=== PATIENT | male | born 1960 | race Caucasian/White ===

== ENCOUNTER 2023-01-30 15:02 | Emergency (ER) | payer MEDICAID, SELFPAY ==
[2023-01-30 15:03] VITALS: BP 180/121; PULSE 85; RESP 18; TEMP 36.8; O2SAT 99; BMI 29.7
--- NOTE | 2023-01-30 15:07 | ED.RN ---
FRIEND THAT CAN BE CALLED FOR [facility] - [phone]
[2023-01-30 15:08] VITALS: O2SAT 100
--- NOTE | 2023-01-30 15:12 | EKG12_ITS ---
Test Reason : CP Blood Pressure : / mmHG Vent. Rate : 084 BPM Atrial Rate : 084 BPM P-R Int : 162 ms QRS Dur : 080 ms QT Int : 394 ms P-R-T Axes : 070 -25 059 degrees QTc Int : 465 ms Normal sinus rhythm Biatrial enlargement Abnormal ECG Confirmed by ANNMARIE WATERMAN, BRIAN ([id number]), advertising editor MAXIMINO PALENCIA ([id number]) on 02/01/2023 9:12:33 AM Referred By: Confirmed By:BRIAN ANGUIANO MD
[2023-01-30] MEDS: 0.9% Normal Saline 1,000 ML 15 ML IV (15:19)
[2023-01-30] MEDS: Aspirin 81 MG TAB.CHEW 324 MG PO (15:19)
--- NOTE | 2023-01-30 15:23 | ED.VIS.CHEST ---
HPI History of Present Illness Chief Complaint: Chest Pain Informant: patient Onset/Context/Timing Onset: Today Activity at onset: gradual Quality: Positive for Aching and - (Squeezing) Location: Left Parasternal Narrative Narrative: Patient presents secondary to chest pain. He reports having an aching sensation in his left chest over the past couple of hours. He states that he is from the [facility] but has been up here as his father recently . He admits that he was without his Paxil and his blood pressure medication for about 4 days but did get them refilled and has been back on the medication for the past 3 days. He is unsure if this is related to his symptoms today. He was not doing anything exertional when pain started. He states actually started shortly after he ate. He denies history of prior heart cath or stent. [facility] Medical History Alcohol abuse Anxiety Depression HTN (hypertension) Osteoarthritis Home Medications carvedilol 25 mg PO/SL BID 01/30/23 [History Last Taken Unknown] lisinopril 40 mg tablet 40 mg PO DAILY 01/30/23 [History Last Taken Unknown] paroxetine HCl 20 mg tablet 20 mg PO DAILY 01/30/23 [History Last Taken Unknown] Allergy/AdvReac Type Severity Reaction Status Date / Time No Known Allergies Allergy Verified 01/30/23 15:05 Social History Smoking Status: Current every day smoker tobacco type: cigarettes ROS ROS ED Constitutional Constitutional ED: Denies chills or fever(s) Eyes Eyes: Denies change in vision or discharge from eye(s) ENT ENT ED: Denies discharge from eye(s), rhinorrhea or sore throat Cardiovascular Cardiovascular: Reports chest pain; Denies palpitations Respiratory/Chest Respiratory/Chest: Reports dyspnea; Denies cough Gastrointestinal Gastrointestinal: Denies abdominal pain, diarrhea, nausea or vomiting Genitourinary Genitourinary ED: Denies dysuria Musculoskeletal Musculoskeletal: Denies back pain or extremity pain Integumentary Denies Abrasions or rash Neurologic Neurologic: Denies headache(s) or weakness Psychiatric Psychiatric: Denies anxiety or depression Allergic/Immunologic Allergic/Immunologic ED: Denies lip swelling or urticaria EXAM Physical Exam Const Vital Signs: 01/30/23 15:03 01/30/23 15:06 01/30/23 15:08 Temperature 98.2 F Temperature Source Temporal Pulse Rate 85 Respiratory Rate 18 Respiratory Effort Normal Non-Labored Blood Pressure 180/121 H Blood Pressure Mean 140 Pulse Ox 99 100 Oxygen Delivery Method Room Air Nasal Cannula Oxygen Flow Rate (L/min) 2 01/30/23 15:24 01/30/23 16:02 01/30/23 17:00 Temperature Temperature Source Pulse Rate 70 64 Respiratory Rate 19 H 16 Respiratory Effort Blood Pressure 150/102 H 140/84 H Blood Pressure Mean 118 102 Pulse Ox 99 95 Oxygen Delivery Method Nasal Cannula Nasal Cannula Room Air Oxygen Flow Rate (L/min) 3 3 01/30/23 18:00 Temperature Temperature Source Pulse Rate 63 Respiratory Rate 16 Respiratory Effort Blood Pressure 138/92 H Blood Pressure Mean 107 Pulse Ox 94 Oxygen Delivery Method Room Air Oxygen Flow Rate (L/min) Positive well nourished and well developed General Appearance ED: well developed HEENT Reports moist mucous membranes Eyes EOMs intact bilaterally Neck no lymphadenopathy Chest Wall inspection of chest normal and palpation of chest normal Resp normal respiratory effort and clear to auscultation bilaterally Cardio regular rate and regular rhythm GI normal to inspection, nondistended, normoactive bowel sounds and soft to palpation Extremity normal to inspection Neuro oriented x3, CN's II-XII intact bilaterally and no sensory deficits noted Motor Exam: strength 5/5 throughout Psych mental status grossly normal Skin no rashes or lesions noted Heart Score History: Moderately Suspicious ECG: Normal Age: >45 - <65 years Risk Factors: 1 or 2 Risk Factors Troponin: </= Normal Limit Score: 3 MDM MDM MDM Narrative Medical decision making narrative: Patient was given aspirin on arrival. He is placed on phototypesetting equipment monitor. EKG obtained to evaluate for cardiac arrhythmia/ischemia. Chest x-ray obtained to evaluate for acute lung pathology, cardiac size, or mediastinal abnormality. Labwork obtained to evaluate for leukocytosis, anemia, and electrolyte derangement. History & Record Review Discussion w/independent historian: Patient Additional record(s) reviewed:: Other Lab Data Attestation: I reviewed the patient's lab results. Labs: Laboratory Results - last 24 hr 01/30/23 01/30/23 01/30/23 15:05 15:05 17:56 WBC 9.9 RBC 5.29 Hgb 16.4 Hct 49.7 MCV 94.0 MCH 31.0 MCHC 33.0 RDW Std Deviation 44.3 H RDW Coeff of Ruth 12.8 Plt Count 230 MPV 9.0 Immature Gran % (Auto) 0.300 Neut % (Auto) 66.0 Lymph % (Auto) 21.8 [place] % (Auto) 10.1 H Eos % (Auto) 1.0 Baso % (Auto) 0.8 Absolute Neuts (auto) 6.5 Absolute Lymphs (auto) 2.15 Nucleated RBC % 0 Sodium 139 Potassium 3.9 Chloride 105 Carbon Dioxide 27.0 Anion Gap 7 BUN 23 H Creatinine 0.65 L Estim Creat Clear Calc 137.00 Est GFR (MDRD) Af Amer 161 Est GFR (MDRD) Non-Af 133 BUN/Creatinine Ratio 35.5 H Glucose 109 H Calcium 9.5 Troponin I High Sens 8 9 Radiography Chest X-Ray - ED: 1 View, Read by ED Physician, Chronic Changes and No Infiltrates Diagnostic Testing: Clinical Impression(s) from Imaging Studies Chest X-Ray 01/30/23 15:30 IMPRESSION: COPD. No acute disease. Electronically Signed: Rohith López MD at 16:54 EDT , EKG Initial EKG: Attestation: I personally reviewed and interpreted this EKG as follows: Interpretation: Sinus Rhythm (Sinus 84 with no acute ischemia.) Treatment and Re-Evaluation :: Patient is from the [facility] and I was able to review prior records and [facility]. In November he was seen at [facility] secondary to chest pain. He had a negative work-up including a delta troponin and was discharged. At that time there was concern that his chest pain was from alcohol withdrawal. He was admitted to the hospital there in October secondary to EtOH withdrawal. CBC is unremarkable with a normal white count and hemoglobin. Chemistry studies unremarkable with normal renal function. Glucose is 109. His initial troponin is 8 and delta troponin is 9. Portable chest x-ray per my interpretation was chronic changes with no acute focal infiltrate. Radiology interpretation is reviewed. EKG is sinus with no evidence of acute ischemia. After the initial blood work came back I went back to examine the patient. He states his pain is improved but not completely resolved. He does report increased anxiety and stress as his father recently . He feels that this is contributing to his chest pain. He was given a small dose of Ativan to help with his anxiety. He states his last alcoholic drink was approximately 12 hours ago. He does not feel as if he is in withdrawal at this time. With the second troponin returning normal I went back to reevaluate the patient. He is sleeping comfortably and easily awoken. He states he feels well at this time. He will be discharged to home and he will call for a ride. He states he plans to stay in this area for a while so I will refer him to a local PCP to establish care. Discharge Plan Triage Chief Complaint: Chest Pain ED Provider: Ange Haines Dx/Rx/DC Orders Clinical Impression: Chest pain Instructions: ED Chest Pain, Uncertain Cause Prescriptions: No Action paroxetine HCl 20 mg Tablet 20 mg PO DAILY lisinopril 40 mg Tablet 40 mg PO DAILY carvedilol 25 mg PO/SL BID Primary Care Provider: Care Physician,No Primary Referrals: Luana Escamilla MD [Med Staff - Recovery Engineer] - As Needed Care Physician,No Primary [Primary Care Provider] - Disposition Disposition: Home, Self Care
[2023-01-30 15:25] LABS: Absolute Lymphocyte Count 2.15 X10^3/uL (0.83-4.51); Absolute Neutrophil Count 6.5 X10^3/uL (2.0-7.7); Basophil# 0.08 X10^3/uL; Basophil% 0.8 % (0-1); Hematocrit 49.7 % (40-54); Hemoglobin 16.4 g/dL (13.0-16.5); Lymphocyte # 2.15 X10^3/ul (0.83-4.51); Lymphocyte % 21.8 % (19-41); Monocyte% 10.1 % (0-10); NRBC Flagged by Analyzer 0 % (0-5); Platelet Count 230 K/mm3 (150-450); RBC Distribution Width CV 12.8 % (11.6-14.6); RBC Distribution Width SD 44.3 fl (35.1-43.9); Red Blood Count 5.29 M/mm3 (4.6-6.2); White Blood Count 9.9 K/mm3 (4.4-11.0)
--- NOTE | 2023-01-30 15:30 | RAD_ITS ---
STUDY: X-RAY CHEST REASON FOR EXAM: Male, 62 years old. chest pain TECHNIQUE: Single frontal view of the chest. COMPARISON: None. FINDINGS: Lungs are hyperaerated. The lungs are clear and expanded. There is no demonstrated pleural abnormality. Normal size heart. Normal mediastinum and marjan. Normal visualized pulmonary arteries. Normal visualized aortic arch and descending thoracic aorta. Normal visualized thoracic spine. Normal visualized ribs, clavicles, and shoulders. There is no demonstrated abnormality of the visualized soft tissue structures of the upper abdomen. RAD/Chest 1 View (Portable) IMPRESSION: COPD. No acute disease. Electronically Signed: Rohith López MD at 16:54 EDT ,
[2023-01-30 15:40] LABS: Anion Gap 7 (5-15); BUN 23 mg/dL (7-18); BUN/Creat Ratio 35.5 RATIO (10-20); Calcium,Total 9.5 mg/dL (8.5-10.1); Chloride 105 mmol/L (98-107); Creatinine, Serum 0.65 mg/dL (0.70-1.30); EST Glomerular Filtration Rate 133 mL/min (>60); Est Glom Filt Rate - Afr Amer 161 mL/min (>60); Glucose 109 mg/dL (74-106); Potassium 3.9 mmol/L (3.5-5.1); Sodium Level 139 mmol/L (136-145); Troponin-I HS (w/2H Reflex) 8 pg/mL (3.0-78.0)
[2023-01-30 16:02] VITALS: BP 150/102; PULSE 70; RESP 19; O2SAT 99
[2023-01-30] MEDS: LORazepam 2 MG/ML Syringe 0.5 MG IV (16:32)
--- NOTE | 2023-01-30 16:53 | ED.RN ---
PATIENTS SISTER CALLING FOR INFORMATION REGARDING HER BROTHER. RN ASKED PATIENT IF HE WOULD LIKE TO TALK TO HIS SISTER. PATIENT STATES NO THANK YOU. RN ASKED ONCE AGAIN. PATIENT SAID NO, I DON'T WANT TO TALK TO HER. PATIENTS SISTER NOTIFIED.
[2023-01-30 17:00] VITALS: BP 140/84; PULSE 64; RESP 16; O2SAT 95
[2023-01-30 17:19] LABS: Reflex Troponin-HS? (from REC) Y
[2023-01-30 18:00] VITALS: BP 138/92; PULSE 63; RESP 16; O2SAT 94
[2023-01-30 18:23] LABS: Troponin-I HS 9 pg/mL (3.0-78.0)
[2023-01-30 19:13] VITALS: PULSE 67; RESP 18; O2SAT 95
== END 2023-01-30 19:14 | disposition home or self-care (01) ==
PROVIDERS: Emergency Provider Emergency Medicine; Visit Provider Emergency Medicine
DX: R07.9 Chest pain, unspecified (principal); I10 Essential (primary) hypertension; F17.210 Nicotine dependence, cigarettes, uncomplicated; Z79.899 Other long term (current) drug therapy; F41.9 Anxiety disorder, unspecified; F32.A Depression, unspecified
CPT/HCPCS: 71045; 80048; 84484; 85025; 93005; 96374; 99285; J7030; A4216

== ENCOUNTER 2023-03-13 16:44 | Emergency (ER) | payer MEDICAID, SELFPAY ==
[2023-03-13 16:45] VITALS: BP 132/94; PULSE 112; RESP 22; TEMP 37.4; O2SAT 95
--- NOTE | 2023-03-13 16:48 | EDS_ITS ---
HPI History of Present Illness Chief Complaint: Chest Pain [facility] Medical History Alcohol abuse Anxiety Depression HTN (hypertension) Osteoarthritis Home Medications carvedilol 25 mg PO/SL BID 01/30/23 [History Last Taken Unknown] lisinopril 40 mg tablet 40 mg PO DAILY 01/30/23 [History Last Taken Unknown] paroxetine HCl 20 mg tablet 20 mg PO DAILY 01/30/23 [History Last Taken Unknown] amlodipine 10 mg tablet 10 mg PO DAILY 03/13/23 [History Last Taken Unknown] thiamine HCl (vitamin B1) 100 mg tablet (Vitamin B-1) 100 mg PO DAILY 03/13/23 [History Last Taken Unknown] Allergy/AdvReac Type Severity Reaction Status Date / Time No Known Allergies Allergy Verified 03/13/23 16:49 Social History Smoking Status: Former smoker EXAM Physical Exam Const Vital Signs: 03/13/23 16:45 03/13/23 16:51 03/13/23 16:52 Temperature 99.3 F H Temperature Source Oral Pulse Rate 112 H Respiratory Rate 22 H Respiratory Effort Normal Non-Labored Blood Pressure 132/94 H Blood Pressure Mean 106 Pulse Ox 95 Oxygen Delivery Method Room Air Room Air 03/13/23 18:44 03/13/23 20:00 Temperature Temperature Source Pulse Rate 108 H 107 H Respiratory Rate 24 H 22 H Respiratory Effort Blood Pressure 179/138 H 148/53 H Blood Pressure Mean 151 84 Pulse Ox 96 96 Oxygen Delivery Method Room Air Room Air Heart Score History: Slightly/Non-Suspicious ECG: Normal Age: >45 - <65 years Risk Factors: 1 or 2 Risk Factors Troponin: </= Normal Limit Score: 2 MDM MDM MDM Narrative Medical decision making narrative: HISTORY OF PRESENT ILLNESS: 62-year-old male here with sudden chest tightness and diaphoresis. States this began Approximately 4 hours prior to arrival. Notes midsternal chest tightness. Pain is not exertional. Is not pleuritic. Patient denies any cough, fever. Denies associated shortness of breath. Denies any focal numbness or weakness. The patient denies recent surgery in the last 4 weeks or immobilization in the last 3 days, denies previous diagnosis of DVT or PE, hemoptysis, unilateral leg swelling or malignancy with treatment the last 6 months. No estrogen use noted. Patient denies sudden onset of pain, no tearing sensation, no migratory symptoms, no new numbness, weakness or loss of sensation. Patient denies family history or personal history of Marfan syndrome or Clare-Danlos. Denies any cocaine or methamphetamine abuse REVIEW OF SYSTEMS: Pertinent positives: Chest tightness, diaphoresis Pertinent negatives: Syncope, focal weakness, leg swelling, unilateral leg swelling, hemoptysis PHYSICAL EXAM: Nursing triage notes reviewed, Vital signs reviewed Constitutional: please see mdm HENT: MMM Eyes: Pupils equal round and reactive to light, Extraocular muscles intact Neck: No stridor, no JVD, full neck ROM Lungs: Clear to auscultation, No wheezing or rales. No increased work of breathing, no conversational dyspnea, no accessory muscle use, no nasal flaring. No respiratory distress noted Heart: Regular rate and rhythm, No murmurs, No rubs and No gallops, 2+ distal pulses (radial, femoral, posterior tibial) in all extremities Abdomen: Soft, there is no tenderness, rigidity, rebound or guarding, no obvious peritoneal signs, no palpable pulsatile abdominal masses, no auscultated abdominal bruit : No CVAT Extremities: No edema Neuro: No focal neurological deficits, cranial nerves II through XII intact, 5/5 strength in all extremities. Intact sensation to light touch in all extremities, 2+ reflexes bilateral patella tendons. Normal gait. No ataxia. Skin: No rash or lesions noted MEDICAL DECISION MAKING: Chief Complaint: Chest tightness External records reviewed: Outpatient note reviewed: Seen last month for chest pain Prior imaging reviewed: Chest x-ray reviewed from 01/30/2023 showed COPD. No acute disease Factors affecting care: Hypertension, anxiety, alcohol abuse, depression Social determinants of health: History of alcoholism History obtained from others: EMS Consults: none ALL IMAGES (IF OBTAINED) HAVE BEEN PERSONALLY REVIEWED AND INTERPRETED BY MYSELF. EKG with sinus tachycardia, left axis deviation, normal intervals, no STEMI, no ischemic changes, no WPW, ARVD or evidence of Brugada syndrome MDM Narrative: Patient was initially tachycardic tachypneic afebrile nontoxic very diaphoretic. I considered the following differential diagnosis: ACS, arrhythmia, anemia, electrode abnormality, alcohol withdrawal, drug ingestion, thyroid dysfunction I obtained a broad lab and imaging work-up to further elucidate the etiology the patient's complaint. Labs not significant anemia, electrolyte abnormalities, initial troponin negative Patient's EKG, troponin were negative x2. Labs are unremarkable as well. No clear x-rays for symptoms. I suspect the patient has a component of alcohol withdrawal however he denies using alcohol vehemently. He was given Ativan for prophylactic effect. He was given a 500 cc bolus. TSH, free T3 and T4 for added as well to work-up with the patient any thyroid disease. Thyroid function studies are negative. On reassessment. I did again talk to the patient about my suspicion that he is going through alcohol withdrawal given hypertension, tachycardia, anxiety and diaphoresis. He again denies using alcohol but does state there may have been alcohol and a drink that he drank proximally 3 days ago. He says he may have done 2 shots. I offer the patient admission for alcohol withdrawal or alcohol detoxification. He refused he stated he has been in [place] and alcohol withdrawal treatment 3 other times to keep given her medicines that make him high and he never gets better. He does not want to stay in the hospital at this time. He is alert and orient x3. He had capacity to make his own medical decisions and chose to be discharged with close PCP follow-up and strict return precautions. PE less likely given low risk Wells score. Aortic dissection is thought to be less likely given no sudden ripping or tearing pain, migratory pain, palpable pulse inequalities, no focal neurologic deficits concurrent with chest pain. Chance of dissection less than 08/1999. Pericarditis less likely given no pathognomonic EKG changes (no diffuse ST elevations, NM depressions). GI etiology (i.e. Boerhaave syndrome) less likely given no chest or neck crepitus, no vomiting or forced retching. The patient and/or family, caregivers express understanding. The patient and/or family, caregivers agrees with the plan. Shared decision making: I will have a discussion with the patient and or visitors regarding risk/benefits of further testing or admission. They will be made aware of of the risk/benefits inherent in this decision they will be given the opportunity to voice understanding. Total critical care time today provided was at least 0 minutes. This excludes separately billable procedures. Critical care time (if documented) is secondary to the patient having high probability of clinically significant/life threatening deterioration in the patient's condition which required my urgent intervention. Lab Data Attestation: I reviewed the patient's lab results. Lab results narrative: CBC with leukocytosis suggestive of systemic inflammation, no significant anemia, no thrombocytopenia. BMP without evidence of significant electrolyte abnormalities, no anion gap, no acute kidney injury. Troponin is negative, no evidence of myocardial ischemia Labs: Laboratory Results - last 24 hr 03/13/23 03/13/23 17:21 19:10 WBC 12.6 H RBC 5.30 Hgb 16.1 Hct 49.9 MCV 94.2 H MCH 30.4 MCHC 32.3 RDW Std Deviation 44.0 H RDW Coeff of Ruth 12.8 Plt Count 188 MPV 9.7 Immature Gran % (Auto) 0.300 Neut % (Auto) 76.2 H Lymph % (Auto) 15.1 L [place] % (Auto) 7.2 Eos % (Auto) 0.7 Baso % (Auto) 0.5 Absolute Neuts (auto) 9.6 H Absolute Lymphs (auto) 1.90 Nucleated RBC % 0 Sodium 141 Potassium 4.2 Chloride 106 Carbon Dioxide 28.0 Anion Gap 7 BUN 39 H Creatinine 1.36 H Est GFR (MDRD) Af Amer 68 Est GFR (MDRD) Non-Af 56 L BUN/Creatinine Ratio 28.7 H Glucose 118 H Calcium 9.9 Troponin I High Sens 8 7 TSH 1.61 Free T4 1.10 Free T3 pg/dL 4.3 H Radiography Chest X-Ray - ED: Read by ED Physician Diagnostic Testing: Clinical Impression(s) from Imaging Studies Chest X-Ray 03/13/23 17:30 IMPRESSION: No change from 01/30/2023. Electronically Signed: Jason Plascencia MD at 17:45 EDT , I have personally reviewed the patient's chest x-ray. Chest x-ray is unremarkable for pulmonary edema, pneumothorax, pneumonia or focal cardiopulmonary abnormality. Discharge Plan Triage Chief Complaint: Chest Pain ED Provider: Josue Mcginnis Dx/Rx/DC Orders Clinical Impression: Alcohol withdrawal, Tachycardia, Hypertension, Chest pain Instructions: Alcohol Withdrawal: What to Expect Prescriptions: No Action paroxetine HCl 20 mg Tablet 20 mg PO DAILY lisinopril 40 mg Tablet 40 mg PO DAILY carvedilol 25 mg PO/SL BID amlodipine 10 mg tablet 10 mg PO DAILY thiamine HCl (vitamin B1) [Vitamin B-1] 100 mg tablet 100 mg PO DAILY Primary Care Provider: Care Physician,No Primary Referrals: Care Physician,No Primary [Primary Care Provider] - Activity Restrictions/Additional Instructions: Thank you for trusting us with your care today! Please return to the emergency department if your symptoms change or worsen. Please follow with your primary care physician for further outpatient evaluation and management. I recommend you drink alcohol to prevent you from going into florid alcohol withdrawal which can be deadly. Disposition Disposition: Home, Self Care
--- NOTE | 2023-03-13 16:50 | EKG12_ITS ---
Test Reason : CP Blood Pressure : / mmHG Vent. Rate : 112 BPM Atrial Rate : 112 BPM P-R Int : 150 ms QRS Dur : 080 ms QT Int : 332 ms P-R-T Axes : 068 -17 048 degrees QTc Int : 453 ms Sinus tachycardia Possible Left atrial enlargement Borderline ECG Confirmed by ANNMARIE WATERMAN, BRIAN ([id number]), medical editor MAXIMINO PALENCIA ([id number]) on 03/14/2023 1:31:08 PM Referred By: CHANTELLE Confirmed By:BRIAN ANGUIANO MD
--- NOTE | 2023-03-13 17:30 | RAD_ITS ---
STUDY: X-RAY CHEST REASON FOR EXAM: Male, 62 years old. chest pain TECHNIQUE: Single AP portable view of the chest. COMPARISON: 01/30/2023 FINDINGS: The lungs are clear and expanded. There is no demonstrated pleural abnormality. There is moderate cardiac enlargement. Normal mediastinum and marjan. Normal visualized pulmonary arteries. Normal visualized aortic arch and descending thoracic aorta. Normal visualized thoracic spine. Normal visualized ribs, clavicles, and shoulders. There is no demonstrated abnormality of the visualized soft tissue structures of the upper abdomen. RAD/Chest 1 View (Portable) IMPRESSION: No change from 01/30/2023. Electronically Signed: Jason Plascencia MD at 17:45 EDT ,
[2023-03-13 17:31] LABS: Absolute Neutrophil Count 9.6 X10^3/uL (2.0-7.7); Basophil# 0.06 X10^3/uL; Basophil% 0.5 % (0-1); Eosinophil# 0.09 X10^3/uL; Eosinophils% 0.7 % (0-5); Hematocrit 49.9 % (40-54); Hemoglobin 16.1 g/dL (13.0-16.5); Lymphocyte % 15.1 % (19-41); Mean Corp Hgb Conc 32.3 g/dL (32-36); Mean Corpuscular Hgb 30.4 pg (27.0-32.0); Mean Corpuscular Volume 94.2 fL (80-94); Mean Platelet Vol. 9.7 fl (6.2-12.0); Monocyte% 7.2 % (0-10); NRBC Flagged by Analyzer 0 % (0-5); Neutrophil # 9.56 X10^3/uL (2.7-7.7); Neutrophil % 76.2 % (47-70); Platelet Count 188 K/mm3 (150-450); RBC Distribution Width CV 12.8 % (11.6-14.6); White Blood Count 12.6 K/mm3 (4.4-11.0)
[2023-03-13 17:49] LABS: Anion Gap 7 (5-15); BUN 39 mg/dL (7-18); BUN/Creat Ratio 28.7 RATIO (10-20); Calcium,Total 9.9 mg/dL (8.5-10.1); Chloride 106 mmol/L (98-107); Creatinine, Serum 1.36 mg/dL (0.70-1.30); EST Glomerular Filtration Rate 56 mL/min (>60); Est Glom Filt Rate - Afr Amer 68 mL/min (>60); Glucose 118 mg/dL (74-106); Potassium 4.2 mmol/L (3.5-5.1); Sodium Level 141 mmol/L (136-145); Troponin-I HS (w/2H Reflex) 8 pg/mL (3.0-78.0)
[2023-03-13] MEDS: LORazepam 2 MG/ML Syringe 1 MG IV (17:50)
[2023-03-13 18:44] VITALS: BP 179/138; PULSE 108; RESP 24; O2SAT 96
[2023-03-13 19:25] LABS: Reflex Troponin-HS? (from REC) Y
[2023-03-13 19:44] LABS: Troponin-I HS 7 pg/mL (3.0-78.0)
[2023-03-13 20:00] VITALS: BP 148/53; PULSE 107; RESP 22; O2SAT 96
[2023-03-13 20:35] LABS: Free T3 4.3 pg/mL (2.18-3.98); Thyroid Stim Hormone (TSH) 1.61 uIU/mL (0.358-3.74)
== END 2023-03-13 21:35 | disposition home or self-care (01) ==
PROVIDERS: Emergency Provider Emergency Medicine; Visit Provider Emergency Medicine
DX: F10.239 Alcohol dependence with withdrawal, unspecified (principal); J44.9 Chronic obstructive pulmonary disease, unspecified; I10 Essential (primary) hypertension; Z79.899 Other long term (current) drug therapy; Z87.891 Personal history of nicotine dependence
CPT/HCPCS: 71045; 80048; 84439; 84443; 84481; 84484; 85025; 93005; 96374; 99285; A4216; J7030

== ENCOUNTER 2023-03-14 02:09 | Emergency (ER) | payer MEDICAID, SELFPAY ==
[2023-03-14 02:11] VITALS: BP 108/88; PULSE 113; RESP 18; TEMP 36.8; O2SAT 90; BMI 26.6
[2023-03-14 02:15] VITALS: BP 104/80; PULSE 113; RESP 18; TEMP 36.8; O2SAT 90
--- NOTE | 2023-03-14 02:29 | EKG12_ITS ---
Test Reason : ANXIETY Blood Pressure : / mmHG Vent. Rate : 110 BPM Atrial Rate : 110 BPM P-R Int : 150 ms QRS Dur : 080 ms QT Int : 330 ms P-R-T Axes : 063 -12 052 degrees QTc Int : 446 ms Sinus tachycardia Possible Left atrial enlargement Borderline ECG Confirmed by ANNMARIE WATERMAN, BRIAN ([id number]), legal editor MAXIMINO PALENCIA ([id number]) on 03/14/2023 1:34:31 PM Referred By: HEAVEN Confirmed By:BRIAN ANGUIANO MD
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
[2023-03-14 04:01] LABS: Troponin-I HS 10 pg/mL (3.0-78.0)
[2023-03-14 04:02] LABS: Alcohol, Blood (Medical)-Serum < 3.0 mg/dL
--- NOTE | 2023-03-14 04:37 | CT_ITS ---
EXAM: CT ABDOMEN AND PELVIS WITHOUT INTRAVENOUS CONTRAST CLINICAL INDICATION: Abdominal pain, history of alcohol abuse, hypertension. Patient unable to hold still. TECHNIQUE: Helically acquired images were obtained of the abdomen and pelvis without intravenous contrast. This CT exam was performed using one or more of the following dose reduction techniques: automated exposure control, adjustment of the mA and/or kV according to patient size, and/or use of iterative reconstruction technique. CONTRAST: 100 cc of Isovue-370 IV. RADIATION DOSE: CTDIvol = 13.28 mGy, DLP = 1097.95 mGy-cm COMPARISON: No relevant prior studies available. FINDINGS: LOWER THORAX: Unremarkable. Lung bases are clear. No cardiomegaly. No significant pericardial effusion. ABDOMEN: LIVER: Unremarkable. Homogeneous. GALLBLADDER AND BILE DUCTS: Unremarkable. No calcified gallstones. No gallbladder distention or wall edema. No intra- or extrahepatic biliary ductal dilation. PANCREAS: Unremarkable. No focal cystic mass. SPLEEN: Unremarkable. Normal size without focal cystic or solid mass. ADRENALS: Unremarkable. No nodules. KIDNEYS AND URETERS: Tiny nonobstructing calculi left kidney. Normal renal size and position. STOMACH AND BOWEL: Mild increased fluid throughout the small bowel may be due to gastroenteritis. No stomach or bowel distention. PELVIS: APPENDIX: Normal appendix. BLADDER: Unremarkable. REPRODUCTIVE: Unremarkable as visualized. No mass. ABDOMEN and PELVIS: INTRAPERITONEAL SPACE: Unremarkable. No ascites or other fluid collection. No free air. BONES/JOINTS: Unremarkable. No suspicious lytic or blastic abnormality. SOFT TISSUES: Unremarkable. No discrete abdominal or pelvic wall hernia. VASCULATURE: Unremarkable. Abdominal aorta is non-dilated. LYMPH NODES: Unremarkable. No enlarged lymph nodes. CT/Abdomen/Pelvis without Cont IMPRESSION: 1. Mild increased fluid throughout the small bowel may be due to gastroenteritis. No obstruction. 2. Tiny nonobstructing calculi left kidney. Electronically Signed: Gustavo Jones MD at 6:04 EDT ,
[2023-03-14] MEDS: Ondansetron 4 MG/2 ML Vial IV (05:18)
[2023-03-14 05:51] LABS: Lipase 38 U/L (13-75)
[2023-03-14 06:24] VITALS: BP 115/68; PULSE 86; RESP 16; O2SAT 92
== END 2023-03-14 06:43 | disposition home or self-care (01) ==
PROVIDERS: Emergency Provider Emergency Medicine; Visit Provider Emergency Medicine
DX: F41.0 Panic disorder [episodic paroxysmal anxiety] (principal); K52.9 Noninfective gastroenteritis and colitis, unspecified; I10 Essential (primary) hypertension; Z87.891 Personal history of nicotine dependence; Z79.899 Other long term (current) drug therapy
CPT/HCPCS: 74176; 80320; 83690; 84484; 93005; A4216; J2405; 82077

== ENCOUNTER 2023-03-14 20:38 | Inpatient (IN) | payer MEDICAID, SELFPAY ==
[2023-03-14 20:40] VITALS: BP 109/65; PULSE 109; RESP 18; TEMP 36.6; O2SAT 98; BMI 29.7
[2023-03-14 20:49] VITALS: PULSE 98
--- NOTE | 2023-03-14 20:50 | EKG12_ITS ---
Test Reason : [facility] Blood Pressure : / mmHG Vent. Rate : 133 BPM Atrial Rate : 133 BPM P-R Int : 156 ms QRS Dur : 084 ms QT Int : 292 ms P-R-T Axes : 038 -26 059 degrees QTc Int : 434 ms Sinus tachycardia Otherwise normal ECG Confirmed by ANNMARIE WATERMAN, BRIAN ([id number]), newspaper editor MAXIMINO PALENCIA ([id number]) on 03/15/2023 9:42:38 AM Referred By: BB Confirmed By:BRIAN ANGUIANO MD
--- NOTE | 2023-03-14 20:50 | CT_ITS ---
STUDY: CT BRAIN WITHOUT CONTRAST REASON FOR EXAM: Male, 62 years old. Change in Mental Status, patient unable to hold still. RADIATION DOSAGE (If Supplied By Facility): CTDIvol = ( 44.99 ) mGy, DLP = ( 880.47 ) mGycm TECHNIQUE: Transaxial CT imaging of the brain was performed without administration of intravenous contrast material. Individualized dose optimization techniques were used for this CT. COMPARISON: No relevant priors. FINDINGS: Normal soft tissue structures. Normal calvarium. Normal size ventricles and extra-axial spaces for the patient''s age. Normal white matter tracts of the cerebral hemispheres. Normal basal ganglia and thalami. Normal brainstem. Normal cerebellum. There is no intracranial hemorrhage. There are no findings of an acute ischemic infarction. Normal visualized paranasal sinuses. CT/Brain/Head without Contrast IMPRESSION: Normal unenhanced CT scan of the brain. Electronically Signed: Letitia Doyle MD at 22:50 EDT Reading Location ID and State: [id number] / Tel , Service support ,
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
[2023-03-14 21:39] VITALS: RESP 18
[2023-03-14 21:54] LABS: Absolute Lymphocyte Count 1.29 X10^3/uL (0.83-4.51); Absolute Neutrophil Count 11.9 X10^3/uL (2.0-7.7); Basophil# 0.04 X10^3/uL; Basophil% 0.3 % (0-1); Eosinophil# 0.02 X10^3/uL; Eosinophils% 0.1 % (0-5); Hemoglobin 14.4 g/dL (13.0-16.5); Lymphocyte # 1.29 X10^3/ul (0.83-4.51); Lymphocyte % 9.3 % (19-41); Mean Corp Hgb Conc 33.5 g/dL (32-36); Mean Corpuscular Hgb 30.6 pg (27.0-32.0); Mean Corpuscular Volume 91.3 fL (80-94); Mean Platelet Vol. 9.7 fl (6.2-12.0); Monocyte# 0.59 X10^3/uL; Monocyte% 4.3 % (0-10); NRBC Flagged by Analyzer 0 % (0-5); Neutrophil # 11.86 X10^3/uL (2.7-7.7); Neutrophil % 85.6 % (47-70); Platelet Count 176 K/mm3 (150-450); RBC Distribution Width CV 13.1 % (11.6-14.6); RBC Distribution Width SD 43.2 fl (35.1-43.9); Red Blood Count 4.71 M/mm3 (4.6-6.2); White Blood Count 13.9 K/mm3 (4.4-11.0)
[2023-03-14 22:01] LABS: Mucous, Urine 0 SEEN /hpf (<or=2+); Red Blood Cells-Urine 0 SEEN /hpf (0-5); Squamous Epithelial Cells - UA 0 SEEN /hpf (0-5)
[2023-03-14 22:04] LABS: Color, Urine Yellow (Yellow); Glucose, Dipstick Normal (Normal); Ketone-Dipstick Negative (Negative); Leukocyte Esterase-Dipstick 25 /ul (Negative); Nitrite-Dipstick Negative (Negative); Occult Blood-Urine 10 /ul (Negative); Protein-Dipstick 30 mg/dl (Negative); Urine Clarity Clear (Clear); Urine Urobilinogen 1 mg/dl (Normal)
[2023-03-14 22:07] LABS: Alcohol, Blood (Medical)-Serum < 3.0 mg/dL
[2023-03-14 22:11] LABS: Bacteria RARE /hpf (None Seen); Calcium Oxalate Crystals Ur 1+ /hpf (<or=2+); Hyaline Cast 0-5 SEEN /lpf (0-5); Urine Bilirubin Dipstick 3 mg/dL (Negative); White Blood Cells 0-5 SEEN /hpf (0-5)
[2023-03-14 22:12] LABS: Amphetamine Urine VISTA POSITIVE (<1000 ng/mL); Barbiturate Urine VISTA NEGATIVE (< 200 ng/mL); Benzodiazepine Urine VISTA NEGATIVE (< 200 ng/mL); Cocaine Urine VISTA NEGATIVE (< 300 ng/mL); Ecstacy Urine VISTA POSITIVE (< 500 ng/mL); Methadone Urine VISTA NEGATIVE (< 300 ng/mL); PCP Urine VISTA NEGATIVE (< 25 ng/mL); THC Urine VISTA NEGATIVE (< 50 ng/mL); Vista UDS pH Range 5
--- NOTE | 2023-03-14 22:20 | RAD_ITS ---
INDICATION: chest pain EXAMINATION/TECHNIQUE: X-RAY - XR Chest 2 Views COMPARISON: 03/13/2023. FINDINGS: LINES/DEVICES: None. LUNGS: No consolidation, edema or effusion. No pneumothorax. MEDIASTINUM AND CARDIOVASCULAR STRUCTURES: Cardiac silhouette not enlarged. Central airways and mediastinal contour are unremarkable. BONES AND SOFT TISSUES: Degenerative changes of the right shoulder. RAD/Chest PA and Lateral IMPRESSION: No radiographic evidence of acute cardiopulmonary disease. Electronically Signed: Letitia Doyle MD at 23:11 EDT Reading Location ID and State: [id number] / Tel , Service support ,
--- NOTE | 2023-03-14 22:22 | CM.ED ---
Social Work SW provided hand off to [facility]. Clinicals to be faxed to Crisis faxage once patient is medically cleared. Plan: [facility] to evaluate MAURISIO Brock
[2023-03-14 22:39] VITALS: RESP 18
[2023-03-14 23:00] VITALS: RESP 16
[2023-03-14 23:13] LABS: ALB/GLOB Ratio 1.2 RATIO (0.9-2.4); AST(SGOT) 30 U/L (15-37); Alanine Aminotransfer ALT/SGPT 21 U/L (16-61); Albumin, Serum 4.1 g/dL (3.2-5.0); Alkaline Phosphatase 77 U/L (45-117); Anion Gap 13 (5-15); BUN 71 mg/dL (7-18); Calcium,Total 9.2 mg/dL (8.5-10.1); Chloride 104 mmol/L (98-107); Creatinine, Serum 2.96 mg/dL (0.70-1.30); EST Glomerular Filtration Rate 23 mL/min (>60); Est Glom Filt Rate - Afr Amer 28 mL/min (>60); Estimated Creatinine Clearance 26.72 ml/min; Globulin 3.3 g/dL (2.2-4.2); Glucose 90 mg/dL (74-106); Potassium 4.4 mmol/L (3.5-5.1); Protein, Total 7.4 g/dL (6.4-8.2); Sodium Level 139 mmol/L (136-145); Thyroid Stim Hormone (TSH) 1.01 uIU/mL (0.358-3.74); Troponin-I HS 12 pg/mL (3.0-78.0)
[2023-03-14 23:39] VITALS: BP 112/82; PULSE 84; RESP 18; TEMP 35.7; O2SAT 98
--- NOTE | 2023-03-14 23:39 | PCM.HP.STD ---
HPI - General General Date of Admission: 03/14/23 Date of Service: 03/14/23 Chief Complaint: Agitation, psychosis. HPI Narrative The patient is a 62 y/o M w/ PMHx: Anxiety and Depression/Bipolar disorder/Unclear if any component schizophrenia, Former tobacco use, HTN, EtOH abuse, recent 03/13/2023 ED evaluation with myriad of complaints including chest discomfort with troponin x 2 negative and EKG was sinus tachycardia with no acute evidence of ischemia with evidence of alcohol withdrawal however patient denied alcohol use at that time with Ativan administration as well as 500 cc IV fluid bolus offered alcohol withdrawal treatment admission at that time however he declined and of note has been in [place] at other facilities for alcohol withdrawal treatment returning 03/14/2023 early a.m. with concern for panic attack reportedly being approached at his hotel room with significant anxiety following prompting to call 911 at that time with palpitations and nausea and possible emesis in the heat of the moment but improved following ED evaluation with discharge to now represents to the [facility] ED on 03/14/23 in the evening brought in by a pink slip reportedly standing out in the rain all day approaching the police at [facility] telling them that someone was trying to kill him and chasing him with extreme paranoia prompting police to bring him in for evaluation. He reported in the ED that he has not partaken EtOH for several weeks of note. Workup in the ED included T97.9, heart rate initially 109 with most recent repeat 98, BP 109/65, respiratory rate 18, 98% on room air, CBC with WBC 13.9, hemoglobin 14.4, platelet 176 with left shift, CMP with BUN/creatinine 71/2.96 otherwise not marked appearing, ammonia 19, troponin 12, TSH 1.01, urinalysis with specific gravity elevated 1.020, negative nitrite, leukocyte Estrace 25 with no urine bacteria, UDS with positive amphetamine and MDMA, ethyl alcohol less than 3, CT the brain with no acute intracranial findings, chest x-ray with no acute cardiopulmonary finding, repeat EKG with sinus tachycardia with no acute evidence of ischemia. [facility] Medical History (Updated 03/14/23 @ 23:[address] Jess Patel MD) Alcohol abuse Anxiety and depression Former tobacco use HTN (hypertension) Osteoarthritis Panic attack Home Medications carvedilol 25 mg PO/SL BID 01/30/23 [History Last Taken Unknown] lisinopril 40 mg tablet 40 mg PO DAILY 01/30/23 [History Last Taken Unknown] paroxetine HCl 20 mg tablet 20 mg PO DAILY 01/30/23 [History Last Taken Unknown] thiamine HCl (vitamin B1) 100 mg tablet (Vitamin B-1) 100 mg PO DAILY 03/13/23 [History Last Taken Unknown] ondansetron 4 mg disintegrating tablet 4 mg PO Q8H PRN PRN Nausea #10 tabs 03/14/23 [Rx Last Taken Unknown] Allergy/AdvReac Type Severity Reaction Status Date / Time No Known Allergies Allergy Verified 03/14/23 20:39 Family History (Updated 03/15/23 @ 00:[address] Jess Patel MD) Mother Anxiety and depression Father Lung disease Surgical History (Updated 03/15/23 @ 00:[address] Jess Patel MD) History of thoracic surgery History of tonsillectomy and adenoidectomy History of total right knee replacement Social History (Updated 03/15/23 @ 00:[address] Jess Patel MD) household members: other details: Homeless. Smoking Status: Former smoker how long ago did patient quit smoking: Quit x 5 weeks. alcohol intake: current alcohol intake frequency: 3 or more drinks per day details: Reports currently sober but poor historian. substance use type: amphetamines and other details: UDS w/ amphetamines/MDMA. ROS ROS Narrative Admission Review of Systems: CONSTITUTIONAL: No weight loss, fever, chills, + weakness or fatigue. HEENT: Eyes: No visual loss, blurred vision, double vision or yellow sclerae. Ears, Nose, Throat: No hearing loss, sneezing, congestion, runny nose or sore throat. SKIN: No rash or itching, lesions, wounds. CARDIOVASCULAR: + chest pain, palpitations. No edema, orthopnea, syncopal events. RESPIRATORY: No shortness of breath, cough or sputum, wheezing, hemoptysis. GASTROINTESTINAL: + anorexia, nausea, vomiting, No diarrhea, abdominal pain, melena, BRBPR. GENITOURINARY: No dysuria, frequency, urgency or retention. NEUROLOGICAL: No headache, dizziness, syncope, paralysis, ataxia, numbness or tingling in the extremities, focal weakness, change in bowel or bladder control, seizure. MUSCULOSKELETAL: + muscle, back pain, joint pain or stiffness. HEMATOLOGIC: No anemia, bleeding or bruising. LYMPHATICS: No enlarged nodes. No history of splenectomy. PSYCHIATRIC: + history of depression or anxiety, acute psychosis/paranoia. ENDOCRINOLOGIC: + reports of sweating, cold or heat intolerance. No polyuria or polydipsia. ALLERGIES: No history of asthma, hives, eczema or rhinitis. Vital Signs Vital Signs Vital Signs: 03/14/23 20:40 03/14/23 20:49 03/14/23 21:39 Temperature 97.9 F Temperature Source Temporal Pulse Rate 109 H 98 Respiratory Rate 18 18 Blood Pressure 109/65 Blood Pressure Mean 79 Pulse Ox 98 Oxygen Delivery Method Room Air 03/14/23 22:39 Temperature Temperature Source Pulse Rate Respiratory Rate 18 Blood Pressure Blood Pressure Mean Pulse Ox Oxygen Delivery Method Weight Weight: 207 lb 0.225 oz Body Mass Index (BMI) 29.7 Physical Exam Narrative Physical Examination: General: Awake, alert, oriented to self, place and some recent events but becomes very nonsensical and perseverates about individuals following him and attempting to hurt him, remains cooperative, initially attempting to look under the bed upon entering the room but sits in the bedside, denies any acute complaints at this time. Skin: Normal color, normal turgor, no icterus, no cyanosis except for occasional staged ecchymoses as well as abrasions. HEENT: AT/NC, EOMI, PERRLA, dry MM, no carotid bruits or JVD noted. Lungs: Diminished, greater bases, appropriate effort, no rales, ronchi or wheezing. Heart: Mildly tachycardic with regular rhythm; no gallop, rub audible. Abdomen: Soft, overweight, NTTP, ND, hyperactive BS, no HSM. Extremities: No cyanosis, clubbing, or edema, see skin. Neurological: Patient awake, alert, oriented as noted, cognitive function not baseline intact given appearance of acute psychosis; pupils equally reactive to light and accommodation, cranial nerves II-XII grossly normal, moving all 4 extremities, no focal deficits, strength mildly to moderately global decreased. Psychiatric: Affect appears anxious, currently pink slipped for acute psychosis with significant paranoia, does have underlying anxiety and depression. Results Lab / Micro Data 03/14/23 21:35 03/14/23 21:35 Labs: Laboratory Results - last 24 hr 03/14/23 21:35: WBC 13.9 H, RBC 4.71, Hgb 14.4, Hct 43.0, MCV 91.3, MCH 30.6, MCHC 33.5, RDW Std Deviation 43.2, RDW Coeff of Ruth 13.1, Plt Count 176, MPV 9.7, Immature Gran % (Auto) 0.400, Neut % (Auto) 85.6 H, Lymph % (Auto) 9.3 L, Amelia % (Auto) 4.3, Eos % (Auto) 0.1, Baso % (Auto) 0.3, Absolute Neuts (auto) 11.9 H, Absolute Lymphs (auto) 1.29, Nucleated RBC % 0, Sodium 139, Potassium 4.4, Chloride 104, Carbon Dioxide 22.0, Anion Gap 13, BUN 71 H, Creatinine 2.96 H, Estim Creat Clear Calc 26.72, Est GFR (MDRD) Af Amer 28 L, Est GFR (MDRD) Non-Af 23 L, BUN/Creatinine Ratio 24.0 H, Glucose 90, Calcium 9.2, Total Bilirubin 0.70, AST 30, ALT 21, Alkaline Phosphatase 77, Ammonia 19.0, Troponin I High Sens 12 03/14/23 21:35: Troponin I High Sens Cancelled, Total Protein 7.4, Albumin 4.1, Globulin 3.3, Albumin/Globulin Ratio 1.2, TSH 1.01, Ethyl Alcohol < 3.0 03/14/23 21:55: Urine Color Yellow, Urine Clarity Clear, Urine pH 5.0, Ur Specific [place] 1.020, Urine Protein 30 H, Urine Glucose (UA) Normal, Urine Ketones Negative, Urine Occult Blood 10 H, Urine Nitrite Negative, Urine Bilirubin 3 H, Urine Urobilinogen 1 H, Ur Leukocyte Esterase 25 H, Urine RBC 0 SEEN, Urine WBC 0-5 SEEN, Ur Squamous Epith Cells 0 SEEN, Calcium Oxalate Crystal 1+, Urine Bacteria RARE, Hyaline Casts 0-5 SEEN, Urine Mucus 0 SEEN, Urine Opiates Screen NEGATIVE, Urine Methadone Screen NEGATIVE, Ur Barbiturates Screen NEGATIVE, Ur Phencyclidine Scrn NEGATIVE, Ur Amphetamines Screen POSITIVE H, MDMA (Ecstasy) Screen POSITIVE H, U Benzodiazepines Scrn NEGATIVE, Urine Cocaine Screen NEGATIVE, U Cannabinoids Screen NEGATIVE, Ur Drug Screen Comment Micro: Microbiology 03/14/23 21:05 Nasal Secretion SARS-CoV-2 Antigen (Rapid) - Final Rhythm Strip Rhythm Strip: Sinus Tach Rate: 110 Ectopy: None Radiology Impression Brain CT 03/14/23 20:50 IMPRESSION: Normal unenhanced CT scan of the brain. Electronically Signed: Letitia Doyle MD at 22:50 EDT Reading Location ID and State: [id number] / Tel , Service support , Chest X-Ray 03/14/23 22:20 IMPRESSION: No radiographic evidence of acute cardiopulmonary disease. Electronically Signed: Letitia Doyle MD at 23:11 EDT Reading Location ID and State: [id number] / Tel , Service support , Assessment & Plan Assessment/Plan (1) QUE (acute kidney injury): PLAN: Plan The patient is a 62 y/o M w/ PMHx: Anxiety and Depression/Bipolar disorder/Unclear if any component schizophrenia, Former tobacco use, HTN, EtOH abuse who presents to the [facility] ED on 03/14/23 in the evening brought in by a pink slip reportedly standing out in the rain all day approaching the police at [facility] telling them that someone was trying to kill him and chasing him with extreme paranoia prompting police to bring him in for evaluation. He reported in the ED that he has not partaken EtOH for several weeks of note. #1. Acute kidney injury: Secondary to suspected dehydration and possibly combination nephrotoxic medication. Admission BUN/Cr 71/2.9, prior baseline creatinine noted to be 0.65 01/30/2023 however had recent ED evaluation with creatinine 03/13/2023 1.36. Will aggressively hydrate, hold nephrotoxic medications and repeat chemistry in AM. Will obtain FeNa assessment. If worsens further low threshold to involve nephrology. #2. Anxiety and Depression/Bipolar disorder/Unclear if any component schizophrenia with concern for Acute Psychosis possibly involving illicit drugs with UDS notable for MDMA/amphetamines; however, is on paxil and could have crossover: Will admit to medical surgical floor, maintain on precautions, patient has been formally pink slipped, holding paroxetine given significant acute kidney injury, crisis will need to be reevaluated if renal function improves to normal baseline, case management consulted, pending. #3. Hypertension: Holding lisinopril given QUE, continue Coreg, as needed IV hydralazine. #4. History EtOH Abuse: Patient notes that he has been sober for several weeks but he vacillates in his history thus unclear intake pattern therefore be cautious will maintain on CIWA protocol, MVI, thiamine and folic acid. Magnesium and phosphorus levels requested. Case management consulted. #5. Former tobacco use: Encouraged continued tobacco cessation. #6. DVT prophylaxis: Low risk. Charges/Coding Visit Charges Inpatient E&M: 96006 Init Hosp L3
[2023-03-15] VITALS (9 sets, daily range): BP systolic 97–125; BP diastolic 51–81; PULSE 71–129; RESP 14–18; TEMP 36.5–37.4; O2SAT 85–98; BMI 25.7
[2023-03-15 00:14] LABS: Magnesium 2.2 mg/dL (1.6-2.6); Phosphorus 8.1 mg/dL (2.5-4.9)
[2023-03-15 00:21] LABS: Urine Sodium < 5 mmol/L (Not Establ.)
[2023-03-15 00:25] LABS: Procalcitonin 0.59 ng/mL (0.00-0.09)
[2023-03-15] MEDS: 0.9% Normal Saline 1,000 ML 999 ML IV ×2 (02:06→03:06)
[2023-03-15] MEDS: hydrOXYzine PAM 25 MG Capsule 50 MG PO ×2 (02:07→14:22)
[2023-03-15] MEDS: 0.9% Saline Lock 10 ML Syringe IV ×2 (02:07→02:36)
[2023-03-15] MEDS: LORazepam 2 MG/ML Syringe IV (02:34)
--- NOTE | 2023-03-15 03:31 | NURSING ---
Upon patient's arrival to the unit individual stood off of the cot and entered the bathroom. He proceeded to turn on the shower and lock the bathroom door. Staff used melton to gain access to bathroom to ensure individual's safety. Pt then exited the bathroom said, I am not doing anything and climbed into the hospital bed. He reached over for the phone and held it in his hands while this RN began admission process. Pt. then interrupted the admission process by calling his Aunt as stated he was worried that she wouldn't know where he is. While talking on the phone fire lookout heard individual say that he would ask. He stood up and put the phone down on the bed. He walked quickly to the doorway as this nurse was attempting to bring him back into the room and explained that this nurse can assist him. He refused to ask this nurse and said he had to ask another patient. He attempted to go into the room next door after being notified that it was after 1am he decided to turn left and walk up the hallway. Then he turned around and walked quickly down the other hallway stating that he is going to the [employer] [facility]. This nurse notified pt. if he returned to the room this nurse would give him snacks and he agreed to return to the room. However, he began closing the door and said can't I speak to my aunt in private? and glared at this nurse. Door cracked and nurse gave patient a few minutes before reentering. Pt was talking excessively and states that he has a dental appointment tomorrow at 6pm and must be out for that as he is trying to get his dentures ordered. He also states that his has dementia and is in assisted living. He reports he chooses to live in [place] because his mother, who has medical problems, lives here with his aunt. Pt. reports he does not have a car but reports his mother drives him if needed and he takes a bus in [place]. He reports he has a sister and she and her are supportive of him but he does not want to take advantage. He states he has Medicaid and wants to be placed in assisted living as he does not currently have a place to live and is currently living in a hotel that he paid for with his SSI last Tuesday and reports he can afford to stay there until this Tuesday.
[2023-03-15] MEDS: 0.9% Normal Saline 1,000 ML 125 ML IV ×3 (04:08→14:03)
[2023-03-15 06:57] LABS: Absolute Lymphocyte Count 2.95 X10^3/uL (0.83-4.51); Absolute Neutrophil Count 6.6 X10^3/uL (2.0-7.7); Basophil# 0.04 X10^3/uL; Basophil% 0.4 % (0-1); Eosinophil# 0.09 X10^3/uL; Eosinophils% 0.8 % (0-5); Hematocrit 40.2 % (40-54); Hemoglobin 12.6 g/dL (13.0-16.5); Lymphocyte # 2.95 X10^3/ul (0.83-4.51); Lymphocyte % 26.9 % (19-41); Mean Corp Hgb Conc 31.3 g/dL (32-36); Mean Corpuscular Volume 95.7 fL (80-94); Mean Platelet Vol. 9.6 fl (6.2-12.0); Monocyte# 1.23 X10^3/uL; Monocyte% 11.2 % (0-10); NRBC Flagged by Analyzer 0 % (0-5); Neutrophil # 6.61 X10^3/uL (2.7-7.7); Neutrophil % 60.4 % (47-70); Platelet Count 145 K/mm3 (150-450); RBC Distribution Width CV 13.1 % (11.6-14.6); RBC Distribution Width SD 45.6 fl (35.1-43.9)
[2023-03-15 07:33] LABS: ALB/GLOB Ratio 1.1 RATIO (0.9-2.4); AST(SGOT) 37 U/L (15-37); Alanine Aminotransfer ALT/SGPT 27 U/L (16-61); Albumin, Serum 3.3 g/dL (3.2-5.0); Alkaline Phosphatase 63 U/L (45-117); Anion Gap 9 (5-15); BUN 68 mg/dL (7-18); BUN/Creat Ratio 31.3 RATIO (10-20); Calcium,Total 8.1 mg/dL (8.5-10.1); Chloride 108 mmol/L (98-107); Creatinine, Serum 2.17 mg/dL (0.70-1.30); EST Glomerular Filtration Rate 33 mL/min (>60); Est Glom Filt Rate - Afr Amer 40 mL/min (>60); Estimated Creatinine Clearance 41.04 ml/min; Glucose 86 mg/dL (74-106); Potassium 3.8 mmol/L (3.5-5.1); Protein, Total 6.3 g/dL (6.4-8.2); Sodium Level 140 mmol/L (136-145)
[2023-03-15] MEDS: Carvedilol 25 MG Tablet PO ×2 (09:33→17:57)
[2023-03-15] MEDS: Multivitamins,Ther W-Minerals Tablet 1 TABLET PO (09:33)
[2023-03-15] MEDS: Folic Acid 1 MG Tablet PO (09:33)
[2023-03-15] MEDS: Thiamine Hydrochloride 100 MG Tablet PO (09:33)
--- NOTE | 2023-03-15 13:36 | PCM.PN.HOSP ---
Reason for Visit Reason for Visit: Diagnoses Acute kidney failure, unspecified (03/14/23) Subjective Subjective Patient with mild somnolence this morning but does answer most questions appropriately. Denies any acute pain or discomfort. Reports adequate urine output since admission. No other acute concerns. Objective Data Objective Data Vital Signs: Vital Signs Temp Pulse Resp BP Pulse Ox O2 Del Method 97.8 F 74 16 102/60 85 Room Air 03/15/23 09:11 03/15/23 09:11 03/15/23 09:11 03/15/23 09:11 03/15/23 13:15 03/15/23 13:15 Oxygen Delivery Method Room Air Weight: 90.832 kg Body Mass Index (BMI) 25.7 Intake & Output: Intake and Output for Last 24 Hours 03/13/23 03/14/23 03/15/23 23:59 23:59 23:59 Intake Total 2201.08 / 2201.08 Balance 2201.08 / 2201.08 Lab / Micro Data Attestation: I reviewed the patient's lab results. 03/15/23 06:25 03/15/23 06:25 Labs: Laboratory Results - last 24 hr 03/14/23 21:35: WBC 13.9 H, RBC 4.71, Hgb 14.4, Hct 43.0, MCV 91.3, MCH 30.6, MCHC 33.5, RDW Std Deviation 43.2, RDW Coeff of Ruth 13.1, Plt Count 176, MPV 9.7, Immature Gran % (Auto) 0.400, Neut % (Auto) 85.6 H, Lymph % (Auto) 9.3 L, [place] % (Auto) 4.3, Eos % (Auto) 0.1, Baso % (Auto) 0.3, Absolute Neuts (auto) 11.9 H, Absolute Lymphs (auto) 1.29, Nucleated RBC % 0, Sodium 139, Potassium 4.4, Chloride 104, Carbon Dioxide 22.0, Anion Gap 13, BUN 71 H, Creatinine 2.96 H, Estim Creat Clear Calc 26.72, Est GFR (MDRD) Af Amer 28 L, Est GFR (MDRD) Non-Af 23 L, BUN/Creatinine Ratio 24.0 H, Glucose 90, Calcium 9.2, Phosphorus 8.1 H, Magnesium 2.2, Total Bilirubin 0.70, AST 30, ALT 21, Alkaline Phosphatase 77, Ammonia 19.0, Troponin I High Sens 12 03/14/23 21:35: Troponin I High Sens Cancelled, Total Protein 7.4, Albumin 4.1, Globulin 3.3, Albumin/Globulin Ratio 1.2, Procalcitonin 0.59 H, TSH 1.01, Ethyl Alcohol < 3.0 03/14/23 21:55: Urine Color Yellow, Urine Clarity Clear, Urine pH 5.0, Ur Specific [place] 1.020, Urine Protein 30 H, Urine Glucose (UA) Normal, Urine Ketones Negative, Urine Occult Blood 10 H, Urine Nitrite Negative, Urine Bilirubin 3 H, Urine Urobilinogen 1 H, Ur Leukocyte Esterase 25 H, Urine RBC 0 SEEN, Urine WBC 0-5 SEEN, Ur Squamous Epith Cells 0 SEEN, Calcium Oxalate Crystal 1+, Urine Bacteria RARE, Hyaline Casts 0-5 SEEN, Urine Mucus 0 SEEN, Ur Random Sodium < 5, Urine Creatinine 217.00, Urine Opiates Screen NEGATIVE, Urine Methadone Screen NEGATIVE, Ur Barbiturates Screen NEGATIVE, Ur Phencyclidine Scrn NEGATIVE, Ur Amphetamines Screen POSITIVE H, MDMA (Ecstasy) Screen POSITIVE H, U Benzodiazepines Scrn NEGATIVE, Urine Cocaine Screen NEGATIVE, U Cannabinoids Screen NEGATIVE, Ur Drug Screen Comment 03/15/23 06:25: WBC 11.0, RBC 4.20 L, Hgb 12.6 L, Hct 40.2, MCV 95.7 H, MCH 30.0, MCHC 31.3 L D, RDW Std Deviation 45.6 H, RDW Coeff of Ruth 13.1, Plt Count 145 L, MPV 9.6, Immature Gran % (Auto) 0.300, Neut % (Auto) 60.4, Lymph % (Auto) 26.9, [place] % (Auto) 11.2 H, Eos % (Auto) 0.8, Baso % (Auto) 0.4, Absolute Neuts (auto) 6.6, Absolute Lymphs (auto) 2.95, Nucleated RBC % 0, Sodium 140, Potassium 3.8, Chloride 108 H, Carbon Dioxide 23.0, Anion Gap 9, BUN 68 H, Creatinine 2.17 H, Estim Creat Clear Calc 41.04, Est GFR (MDRD) Af Amer 40 L, Est GFR (MDRD) Non-Af 33 L, BUN/Creatinine Ratio 31.3 H, Glucose 86, Calcium 8.1 L, Total Bilirubin 0.60, AST 37, ALT 27, Alkaline Phosphatase 63, Total Protein 6.3 L, Albumin 3.3, Globulin 3.0, Albumin/Globulin Ratio 1.1 Micro: Microbiology 03/14/23 21:05 Nasal Secretion SARS-CoV-2 Antigen (Rapid) - Final Radiography Diagnostic Testing: Radiology Impression Brain CT 03/14/23 20:50 IMPRESSION: Normal unenhanced CT scan of the brain. Electronically Signed: Letitia Doyle MD at 22:50 EDT Reading Location ID and State: [place] / Tel , Service support , Chest X-Ray 03/14/23 22:20 IMPRESSION: No radiographic evidence of acute cardiopulmonary disease. Electronically Signed: Letitia Doyle MD at 23:11 EDT Reading Location ID and State: [place] MD Tel , Service support , Rhythm Strip Rhythm Strip: Sinus Tach Rate: 110 Ectopy: None Physical Exam Const alert, oriented x3 and no apparent distress General Appearance: cooperative and comfortable Orientation / Consciousness: lethargic HEENT normocephalic, head/scalp atraumatic, hearing grossly normal bilaterally, nasal mucous membranes and turbinates normal and moist oral mucous membranes Eyes PERRL, EOMs intact bilaterally and conjunctivae normal Neck full ROM, no lymphadenopathy and supple Lymph Lymphatic: no lymphadenopathy noted Chest inspection of chest normal Resp normal respiratory effort, normal air movement, no use of accessory muscles and clear to auscultation bilaterally Cardio regular rate, regular rhythm, no murmurs and peripheral pulses 2+ throughout GI normal to inspection, nondistended, normoactive bowel sounds, soft to palpation, non-tender and non-distended Back/Spine normal ROM Extremity normal to inspection, full ROM and no pedal edema Skin no rashes or lesions noted Psych mental status grossly normal Assessment & Plan Assessment/Plan (1) QUE (acute kidney injury): PLAN: Plan Patient is a 62 y/o M w/ PMHx significant for Anxiety/Depression/Bipolar disorder/Unclear if any component schizophrenia, former tobacco use, HTN, EtOH abuse who presented to the [facility] ED on 03/14/23 by the police for severe paranoia. Found to have significant QUE, admitted for further workup. #1. Acute kidney injury: Pre-renal QUE confirmed by urine studies with FeNa 0.1%. Very likely secondary to dehydration. Admission BUN/Cr 71/2.9, improved to BUN/Cr 68/2.17 with IV fluids. Prior baseline creatinine noted to be 0.65 01/30/2023, however recent ED evaluation with creatinine 03/13/2023 1.36. Will continue maintenance fluids through this evening, monitor morning BMP. Patient reports good urine output, no strict documentation noted. Hold nephrotoxic medications. No need for nephrology consultation at this time. #2. Anxiety and Depression/Bipolar disorder/Unclear if any component schizophrenia: Concern for acute psychosis possibly involving illicit drugs with UDS notable for MDMA/amphetamines. However, patient is on paxil and could have crossover. Mental status improved today. Holding Paxil in setting of severe QUE, if significantly improved tomorrow can restart. Case management following. #3. Hypertension: Holding lisinopril given QUE, continue Coreg, as needed IV hydralazine. #4. History EtOH Abuse: Patient notes that he has been sober for several weeks but he vacillates in his history thus unclear intake pattern. Will maintain on CIWA protocol, MVI, thiamine and folic acid; has not required any PRN benzos to this point. Magnesium and phosphorus levels normal. Case management following. #5. Former tobacco use: Encouraged continued tobacco cessation. #6. DVT prophylaxis: Low risk. Charges/Coding Visit Charges Inpatient E&M: 33018 Subs Hosp L2
--- NOTE | 2023-03-15 13:59 | CASEMGMT ---
Social Work Referral for crisis assessment. Pt is not medically cleared at this time. Referral will be sent to Crisis for psychiatric assessment when medically cleared. TRISTAN Lag[place]
--- NOTE | 2023-03-15 19:21 | NURSING ---
iv extravisation site to left ac. old bruising noted site w/o reddness
[2023-03-16 02:10] VITALS: BP 110/63; PULSE 77; RESP 18; TEMP 36.8; O2SAT 92
--- NOTE | 2023-03-16 07:04 | PN.HOSP_ITS ---
Reason for Visit Reason for Visit: Diagnoses Acute kidney failure, unspecified (03/14/23) Subjective Subjective Patient seen at bedside this morning. Appeared more awake and alert this morning. Answering most questions appropriately but does tend to mumble at times. States he feels better today than yesterday. Has some mild upper back and shoulder aches but otherwise denies any acute concerns. Spoke with patient's sister Sandra on the phone this morning. Care lives in [place]. She states that patient was living in [place] until about 6 weeks ago. He has a history of alcohol use but has now started using illicit drugs over the past year. He was hospitalized in [place] multiple times including a few ICU stays where intubation was required. They moved him up to the [place] area to try to limit his drug use. He was clean for about 5 weeks but then she thinks he likely found somewhere to get illicit drugs. She states that patient has no known psychiatric disorder. She thinks that any psychosis or paranoia is secondary to drug use. She is very in support of outpatient substance abuse treatment options for the patient. She is concerned about where he will go on discharge and where he will receive medical care. Spoke with patient after this conversation with his sister. Patient denies any illicit substance use recently. Did state that he recently moved to [place] and has been staying in a hotel in the area. States that he has been taking his home medications as prescribed. Does not have a PCP; it is unclear where/how he receives medication refills. Objective Data Objective Data Vital Signs: Vital Signs Temp Pulse Resp BP Pulse Ox O2 Del Method 98.2 F 77 18 110/63 92 Room Air 03/16/23 02:10 03/16/23 02:10 03/16/23 02:10 03/16/23 02:10 03/16/23 02:10 03/16/23 02:10 Oxygen Delivery Method Room Air Weight: 90.832 kg Body Mass Index (BMI) 25.7 Intake & Output: Intake and Output for Last 24 Hours 03/14/23 03/15/23 03/16/23 23:59 23:59 23:59 Intake Total 5056.08 / 5256.08 300 / 300 Balance 5056.08 / 5256.08 300 / 300 Lab / Micro Data Attestation: I reviewed the patient's lab results. 03/15/23 06:25 03/16/23 06:50 Labs: Laboratory Results - last 24 hr 03/15/23 06:25: WBC 11.0, RBC 4.20 L, Hgb 12.6 L, Hct 40.2, MCV 95.7 H, MCH 30.0, MCHC 31.3 L D, RDW Std Deviation 45.6 H, RDW Coeff of Ruth 13.1, Plt Count 145 L, MPV 9.6, Immature Gran % (Auto) 0.300, Neut % (Auto) 60.4, Lymph % (Auto) 26.9, Moca % (Auto) 11.2 H, Eos % (Auto) 0.8, Baso % (Auto) 0.4, Absolute Neuts (auto) 6.6, Absolute Lymphs (auto) 2.95, Nucleated RBC % 0, Sodium 140, Potassium 3.8, Chloride 108 H, Carbon Dioxide 23.0, Anion Gap 9, BUN 68 H, Creatinine 2.17 H, Estim Creat Clear Calc 41.04, Est GFR (MDRD) Af Amer 40 L, Est GFR (MDRD) Non-Af 33 L, BUN/Creatinine Ratio 31.3 H, Glucose 86, Calcium 8.1 L, Total Bilirubin 0.60, AST 37, ALT 27, Alkaline Phosphatase 63, Total Protein 6.3 L, Albumin 3.3, Globulin 3.0, Albumin/Globulin Ratio 1.1 Micro: Microbiology 03/14/23 21:05 Nasal Secretion SARS-CoV-2 Antigen (Rapid) - Final Rhythm Strip Rhythm Strip: Sinus Tach Rate: 110 Ectopy: None Physical Exam Const alert and oriented x3 Constitutional Narrative: More awake and alert this morning. Still mumbles with his speech quite frequently and can be difficult to understand. He is oriented to time and place. Resting comfortably in bed, in no acute distress. General Appearance: cooperative HEENT normocephalic, head/scalp atraumatic, hearing grossly normal bilaterally, nasal mucous membranes and turbinates normal and moist oral mucous membranes Eyes PERRL, EOMs intact bilaterally and conjunctivae normal Neck full ROM and supple Chest inspection of chest normal Resp normal respiratory effort, normal air movement, no use of accessory muscles and clear to auscultation bilaterally Cardio regular rate, regular rhythm, no murmurs and peripheral pulses 2+ throughout GI normal to inspection, nondistended, normoactive bowel sounds, soft to palpation, non-tender and non-distended Back/Spine normal ROM Extremity normal to inspection, full ROM and no pedal edema Skin no rashes or lesions noted Psych mental status grossly normal Assessment & Plan Assessment/Plan (1) QUE (acute kidney injury): PLAN: Plan Patient is a 62 y/o M w/ PMHx significant for Anxiety/Depression/Bipolar disorder, former tobacco use, HTN, EtOH abuse who presented to the [facility] ED on 03/14/23 by the police for severe paranoia. Found to have significant QUE, admitted for further workup. #1. Acute kidney injury, resolved: Pre-renal QUE confirmed by urine studies with FeNa 0.1%. Very likely secondary to dehydration, likely in setting of drug use as below. Resolved with IV fluids, most recent Cr 0.68. Good urine output. #2. Substance use disorder: UDS positive for MDMA and amphetamines on admission. Initially had concern for crossover with home Paxil but on further conversation with patient's sister, have high suspicion that he has been using ecstasy and methamphetamine. Story given by police about patient on admission (found wandering in [employer] parking lot stating someone was trying to kill him, consistent with acute paranoia) seems consistent with ecstasy and/or amphetamine use. Crisis director social service will see patient as noted below. Case management following. Will plan for discharge home but present patient with information regarding outpatient treatment programs. #3. Anxiety and Depression/Bipolar disorder: Seems that patient's acute psychosis on admission was due to illicit drug use as noted above. Unclear on degree of patient's underlying anxiety and depression. Patient states he has been taking his Paxil regularly. Given improvement in kidney function, will restart patient's Paxil today. Recommend outpatient follow-up. #4. Hypertension: Home medications of carvedilol 25 mg twice daily, lisinopril 40 mg daily, and amlodipine 10 mg daily. Continued carvedilol here, have been holding lisinopril and amlodipine. Patient's blood pressures have ranged from the 100s to 120 systolic. Have concern that patient may become hypotensive if lisinopril and amlodipine are restarted prior to discharge. Will hold these medications on discharge and continue the carvedilol. Patient unfortunately does not have a PCP; will be important for patient to establish with a primary care doctor for further medication management in the office. #5. History EtOH Abuse: Patient has not required any as needed benzos via the [facility] protocol to this point. Continue MVI, thiamine and folic acid. Case man agement following, will assist with providing resources for outpatient treatment. #6. Former tobacco use: Encouraged continued tobacco cessation. #7. DVT prophylaxis: Low risk. Patient is medically stable for discharge today. Awaiting evaluation from crisis director social service at this time. Case management to assist with resources on discharge as noted above. Total clinical time spent by myself addressing the patient's medical issues, reviewing all of the data, and collaborating with patient's care team: 35 minutes. Charges/Coding Visit Charges Inpatient E&M: 53764 Subs Hosp L2
[2023-03-16 07:36] LABS: Anion Gap 3 (5-15); BUN 31 mg/dL (7-18); BUN/Creat Ratio 45.4 RATIO (10-20); Calcium,Total 8.5 mg/dL (8.5-10.1); Chloride 113 mmol/L (98-107); Creatinine, Serum 0.68 mg/dL (0.70-1.30); EST Glomerular Filtration Rate 125 mL/min (>60); Est Glom Filt Rate - Afr Amer 151 mL/min (>60); Estimated Creatinine Clearance 130.96 ml/min; Glucose 93 mg/dL (74-106); Potassium 4.2 mmol/L (3.5-5.1); Sodium Level 144 mmol/L (136-145)
[2023-03-16 08:16] VITALS: BP 116/65; PULSE 82; RESP 16; TEMP 36.9; O2SAT 94
[2023-03-16] MEDS: Carvedilol 25 MG Tablet PO ×2 (08:56→18:04)
[2023-03-16] MEDS: Thiamine Hydrochloride 100 MG Tablet PO (08:56)
[2023-03-16] MEDS: Multivitamins,Ther W-Minerals Tablet 1 TABLET PO (08:56)
[2023-03-16] MEDS: Folic Acid 1 MG Tablet PO (08:56)
[2023-03-16] MEDS: Paroxetine 20 MG Tablet PO (08:56)
--- NOTE | 2023-03-16 10:33 | CASEMGMT ---
Social Work Per physician, pt is medically cleared for mental health evaluation by Crisis. Clinical information faxed and phone call to crisis for referral. Information will be given to therpist who will come to assess. TRISTAN Lagos
--- NOTE | 2023-03-16 14:28 | DCINST_ITS ---
Discharge Instructions Diet Discharge Diet: No restrictions Activity Discharge Activity: Return to Normal Activity Weight Bearing Status: Full weight bearing Follow Up Care Test Results: Test results from this visit will be discussed in further detail at your follow- up appointment, if applicable. Discharge Plan Admission Admit Date/Time: 03/14/23 23:41 Primary Reason for Your Visit: QUE, methamphetamine use disorder Attending Provider: Remi Abreu Primary Care Provider: Care Physician,No Primary Consulting Providers: Jess Patel Instructions Additional Instructions / Restrictions: We strongly recommend enrolling in outpatient substance abuse treatment program for your substance use disorder. Please do not take the following medications until you see a primary care doctor outpatient: Amlodipine and lisinopril. Please continue all other home medications as prescribed. Discharge Orders/Prescriptions Prescriptions: Continued paroxetine HCl 20 mg Tablet 20 mg PO DAILY carvedilol 25 mg PO BID thiamine HCl (vitamin B1) [Vitamin B-1] 100 mg tablet 100 mg PO DAILY ondansetron 4 mg tablet,disintegrating 4 mg PO Q8H PRN PRN (Reason: Nausea) Qty: 10 0RF Discontinued lisinopril 40 mg Tablet 40 mg PO DAILY amlodipine 10 mg tablet 10 mg PO DAILY Referrals / Follow Up: Care Physician,No Primary [Primary Care Provider] - Within 2 Weeks Disposition Disposition (needs filled in before D/C Order can be placed): Home, Self Care
--- NOTE | 2023-03-16 14:28 | PCM.DC.SUM ---
Providers Date of Admission: 03/14/23 Date of Discharge: 03/16/23 Primary Care Physician: No Primary Care Phys Reason For Visit: QUE, ACUTE PSYCHOSIS Diagnosis Discharge Diagnosis (1) QUE (acute kidney injury): Status: Acute Code(s): N17.9 - Acute kidney failure, unspecified Plan #1. Acute kidney injury, resolved: Pre-renal QUE confirmed by urine studies with FeNa 0.1%. Very likely secondary to dehydration, likely in setting of drug use as below. Resolved with IV fluids, most recent Cr 0.68. Good urine output. #2. Substance use disorder: UDS positive for MDMA and amphetamines on admission. Initially had concern for crossover with home Paxil but on further conversation with patient's sister, have high suspicion that he has been using ecstasy and methamphetamine. Story given by police about patient on admission (found wandering in [employer] parking lot stating someone was trying to kill him, consistent with acute paranoia) seems consistent with ecstasy and/or amphetamine use. Crisis perinatal social worker will see patient as noted below. Case management following. Will plan for discharge home but present patient with information regarding outpatient treatment programs. #3. Anxiety and Depression/Bipolar disorder: Seems that patient's acute psychosis on admission was due to illicit drug use as noted above. Unclear on degree of patient's underlying anxiety and depression. Patient states he has been taking his Paxil regularly. Given improvement in kidney function, will restart patient's Paxil today. Recommend outpatient follow-up. #4. Hypertension: Home medications of carvedilol 25 mg twice daily, lisinopril 40 mg daily, and amlodipine 10 mg daily. Continued carvedilol here, have been holding lisinopril and amlodipine. Patient's blood pressures have ranged from the 100s to 120 systolic. Have concern that patient may become hypotensive if lisinopril and amlodipine are restarted prior to discharge. Will hold these medications on discharge and continue the carvedilol. Patient unfortunately does not have a PCP; will be important for patient to establish with a primary care doctor for further medication management in the office. #5. History EtOH Abuse: Patient has not required any as needed benzos via the [place] protocol to this point. Continue MVI, thiamine and folic acid. Case management following, will assist with providing resources for outpatient treatment. #6. Former tobacco use: Encouraged continued tobacco cessation. Medications at Discharge Home Medications carvedilol 25 mg PO BID htn 01/30/23 paroxetine HCl 20 mg tablet 20 mg PO DAILY 01/30/23 thiamine HCl (vitamin B1) 100 mg tablet (Vitamin B-1) 100 mg PO DAILY 03/13/23 ondansetron 4 mg disintegrating tablet 4 mg PO Q8H PRN PRN Nausea #10 tabs 03/14/23 Hospital Course Operations None Procedures None Summary of Care Provided Minutes Spent on Discharge: 35 Hospital Course: Patient is a 62 y/o M w/ PMHx significant for Anxiety/Depression/Bipolar disorder, former tobacco use, HTN, EtOH abuse who presented to the [facility] ED on 03/14/23 by the police for severe paranoia. Found to have significant QUE, admitted for further workup. UDS was positive for MDMA and amphetamines. Patient denied illicit substance use, however on further discussion with patient's mother and sister he has had multiple previous admissions for substance use disorder. Crisis perinatal social worker evaluated, determined psychosis was very likely due to substance use and patient had no significant underlying psychiatric disorder. QUE resolved with IV fluids. Recommended an inpatient treatment program on discharge but patient preferred to be discharged home (has been staying in local hotel for the last 6 weeks). Case management followed and provided patient with outpatient treatment resources as well as resources to find a PCP. Patient was discharged in stable condition. Physical Exam Const alert and oriented x3 Constitutional Narrative: More awake and alert this morning. Still mumbles with his speech quite frequently and can be difficult to understand. He is oriented to time and place. Resting comfortably in bed, in no acute distress. General Appearance: cooperative HEENT normocephalic, head/scalp atraumatic, hearing grossly normal bilaterally, nasal mucous membranes and turbinates normal and moist oral mucous membranes Eyes PERRL, EOMs intact bilaterally and conjunctivae normal Neck full ROM and supple Chest inspection of chest normal Resp normal respiratory effort, normal air movement, no use of accessory muscles and clear to auscultation bilaterally Cardio regular rate, regular rhythm, no murmurs and peripheral pulses 2+ throughout GI normal to inspection, nondistended, normoactive bowel sounds, soft to palpation, non-tender and non-distended Back/Spine normal ROM Extremity normal to inspection, full ROM and no pedal edema Skin no rashes or lesions noted Psych mental status grossly normal Weight / BMI Weight Weight: 90.832 kg Body Mass Index (BMI) 25.7 ABG / Lab / Microbiology Data 03/15/23 06:25 03/16/23 06:50 Laboratory: Laboratory Results - last 24 hr 03/16/23 06:50: Sodium 144, Potassium 4.2, Chloride 113 H, Carbon Dioxide 28.0, Anion Gap 3 L, BUN 31 H, Creatinine 0.68 L, Estim Creat Clear Calc 130.96, Est GFR (MDRD) Af Amer 151, Est GFR (MDRD) Non-Af 125, BUN/Creatinine Ratio 45.4 H, Glucose 93, Calcium 8.5 Microbiology: Microbiology 03/14/23 21:05 Nasal Secretion SARS-CoV-2 Antigen (Rapid) - Final D/C Instructions Discharge Diet: No restrictions Weight Bearing Status: Full weight bearing Meaningful Use Info Meaningful Use Diagnoses (Choose all that apply): None applicable Discharge Plan Admission Admit Date/Time: 03/14/23 23:41 Primary Reason for Your Visit: QUE, methamphetamine use disorder Attending Provider: Remi Abreu Primary Care Provider: Care Physician,Delfina Primary Consulting Providers: Jess Patel Instructions Additional Instructions / Restrictions: We strongly recommend enrolling in outpatient substance abuse treatment program for your substance use disorder. Please do not take the following medications until you see a primary care doctor outpatient: Amlodipine and lisinopril. Please continue all other home medications as prescribed. Discharge Orders/Prescriptions Prescriptions: Continued paroxetine HCl 20 mg Tablet 20 mg PO DAILY carvedilol 25 mg PO BID thiamine HCl (vitamin B1) [Vitamin B-1] 100 mg tablet 100 mg PO DAILY ondansetron 4 mg tablet,disintegrating 4 mg PO Q8H PRN PRN (Reason: Nausea) Qty: 10 0RF Discontinued lisinopril 40 mg Tablet 40 mg PO DAILY amlodipine 10 mg tablet 10 mg PO DAILY Referrals / Follow Up: Care Physician,No Primary [Primary Care Provider] - Within 2 Weeks Disposition Disposition (needs filled in before D/C Order can be placed): Home, Self Care Charges/Coding Visit Charges Inpatient E&M: 05958 Disch Hosp >30min
[2023-03-16 15:00] VITALS: BP 112/62; PULSE 72; RESP 16; TEMP 36.9; O2SAT 96
--- NOTE | 2023-03-16 15:16 | PHA.DC.MR.R ---
Pharmacy [place] Med Reconciliation Pharmacy Service has performed discharge medication reconciliation for this patient. The patient's discharge medication list was reviewed for discrepancies and discrepancies were resolved. Medications at Discharge Home Medications carvedilol 25 mg PO BID htn 01/30/23 paroxetine HCl 20 mg tablet 20 mg PO DAILY 01/30/23 thiamine HCl (vitamin B1) 100 mg tablet (Vitamin B-1) 100 mg PO DAILY 03/13/23 ondansetron 4 mg disintegrating tablet 4 mg PO Q8H PRN PRN Nausea #10 tabs 03/14/23
--- NOTE | 2023-03-16 15:51 | CASEMGMT ---
Social Work Renetta from Crisis here and assessed pt. Pt cleared and does not required psychiatric hospitalization. Pt mother present and requesting to speak with SW. Per mother, pt was in 2 hospitals in [place] in the last 5 weeks due to drug use and was intubated. Mother advocating for psychiatric or drug rehab placement. SW explained pt has been evaluated and does not qualify for psychiatric placement and pt would need to be agreeable to drug rehab placement. SW met with pt and Social Determinant of Health Screening completed. Pt agreeable to speak with SW but keeps eyes closed throughout conversation. Pt was living in [place] with friends prior to coming to [place]. Pt cannot remember last time he had permanent housing. Pt moved to [place] about 3 weeks ago and has been staying at the [facility]. Pt states his sister Sandra is paying for his room. Pt's mother lives in [place] and provides transportation or pt walks. Pt does not always have needed food. He does have Foodstamps and his sister has ordered him some food. SW inquired about Alcohol use and pt states he stopped drinking 5 weeks ago and has 2 shots recently and nothing else. When asked, pt would not expand on alcohol use prior to this. SW inquired about drug use and pt denies any history of drug use expect possibly marijuana when he was young. SW broached topic of mothers concerns and that pt would benefit from inpatient drug rehabilitation. Pt continues to deny drug use and need for rehab center. SW spoke with pt regarding [facility] and out pt mental health and addiction counseling and housing assistance program. Pt agreeable to go to this. SW explained that assessments are done as walk in and walk in hours provided to pt. Physician updated and pt is ready for discharge today. SW updated pt who is agreeable and states he will return to the [facility] and mother will transport. With pt permission phone call to pt mother who states she will not transport. Transportation arranged with hospital van for 3:30 forklift picker. SW met with pt and explained that mother could not transport. Pt called sister Sandra and pt gave SW phone to speak with Sandra. Sandra very concerned for pts well being as pt has been doing meth and expressed concerns about hospitalizations. Sandra requesting inpatient drug rehab. SW explained that pt is not agreeable to this and did explain [facility] outpt program. Per her request, resources sent for counseling and drug treatment programs via email. Sandra states she needs to call [facility] and secure a room and that pt's mother will be transporting pt home. Hospital transportation cancelled. Resources Provided: [facility] mental health and addiction counseling and housing program. [facility] and PCP list, [facility] [employer] Card with food resources, transportation resources, Housing and residential information. PLAN: Return to hotel with mother transporting S. TRISTAN Robert
== END 2023-03-16 19:08 | disposition home or self-care (01) | DRG 422 ==
LOC: ED 23:26 → MS3 03-15 00:03
PROVIDERS: Admitting Provider Family Medicine; Emergency Provider Emergency Medicine; Visit Provider Hospitalist
DX: E86.0 Dehydration (principal); N17.9 Acute kidney failure, unspecified; F23 Brief psychotic disorder; F31.9 Bipolar disorder, unspecified; I10 Essential (primary) hypertension; F41.9 Anxiety disorder, unspecified; Z87.891 Personal history of nicotine dependence; Z59.00 Homelessness unspecified
CPT/HCPCS: 36415; 70450; 71045; 71046; 74176; 80048; 80053; 80307; 81001; 82077; 82140; 82570; 83690; 83735; 84100; 84145; 84300; 84439; 84443; 84481; 84484; 85025; 87811; 93005; 96374; 99285; 99406; J7030; A4216; J2405

== ENCOUNTER 2023-06-17 20:30 | Inpatient (IN) | payer MEDICAID, SELFPAY ==
[2023-06-17 20:32] VITALS: BP 172/94; PULSE 106; RESP 22; TEMP 34.8; O2SAT 94; BMI 27.6
--- NOTE | 2023-06-17 20:37 | ED.RN ---
Attempted to call sister Sandra from contacts list in [employer], no answer and voicemail was full, unable to leave message.
--- NOTE | 2023-06-17 20:50 | ED.RN ---
Sister Sandra called back, gave mother's name and number, Shahla Louis, , states she lives in [place]. Sister concerned for drugs altering LOC, states he has a drug and alcohol history.
--- NOTE | 2023-06-17 21:00 | ED.RN ---
Pt told staff he needed to have a bowel movement, staff escorting pt to restroom, pt threw off gown, ran down the back murillo, opened backed door and ran out of the building. Notified HRO and security of pt leaving. Spoke to Dr. Qureshi since pt had not yet been evaluated, explained situation and events, Dr. Qureshi reports pt to be pink slipped due to delusions. PD made aware.
--- NOTE | 2023-06-17 21:03 | ED.RN ---
Pt getting out of bed stating he needed to use the restroom. This nurse helped pt get monitors off and gown on. Pt then ripped off gown and ran down the hallway in underwear screaming. Attempted to redirect multiple times and was unsuccessful. PD attempted to redirect and was unsuccessful. Pt swinging at PD and attempting to fight. notified.
--- NOTE | 2023-06-17 21:05 | ED.RN ---
Restraints applied at 2104. Discussed case with Dr. Sotomayor also, she agrees with assessment and observation of pt. Order given for restraints, pink slip completed to [facility] by Dr. Sotomayor.
--- NOTE | 2023-06-17 21:10 | CT_ITS ---
STUDY: CT BRAIN WITHOUT CONTRAST REASON FOR EXAM: Male, 62 years old. AMS RADIATION DOSAGE (If Supplied By Facility): CTDIvol = ( 44.99 ) mGy, DLP = ( 897.35 ) mGycm TECHNIQUE: Transaxial CT imaging of the brain was performed without administration of intravenous contrast material. Individualized dose optimization techniques were used for this CT. COMPARISON: 03/14/2023 FINDINGS: Normal soft tissue structures. Normal calvarium. Normal size ventricles and extra-axial spaces for the patient''s age. Normal white matter tracts of the cerebral hemispheres. Normal basal ganglia and thalami. Normal brainstem. Normal cerebellum. There is no intracranial hemorrhage. There are no findings of an acute ischemic infarction. Normal visualized paranasal sinuses. CT/Brain/Head without Contrast IMPRESSION: Normal unenhanced CT scan of the brain. Electronically Signed: Jason Plascencia MD at 22:19 EST ,
--- NOTE | 2023-06-17 21:11 | EKG12_ITS ---
Test Reason : [facility] Blood Pressure : / mmHG Vent. Rate : 107 BPM Atrial Rate : 107 BPM P-R Int : 148 ms QRS Dur : 086 ms QT Int : 348 ms P-R-T Axes : 064 022 076 degrees QTc Int : 464 ms Sinus tachycardia Otherwise normal ECG Confirmed by PILO WATERMAN, ITALIA ([id number]), editor news BRADLEY DOWNS ([id number]) on 06/20/2023 8:32:05 AM Referred By: Confirmed By:MISAEL DAIGLE MD
--- NOTE | 2023-06-17 21:14 | ED.RN ---
Attempted to call mother Shahla, message left.
[2023-06-17] MEDS: Ziprasidone IM 20 MG/ML VIAL IM (21:19)
[2023-06-17] MEDS: 0.9% Normal Saline (500mL Bag) 500 ML 999 ML IV (21:46)
[2023-06-17 21:55] LABS: Absolute Lymphocyte Count 1.17 X10^3/uL (0.83-4.51); Absolute Neutrophil Count 10.7 X10^3/uL (2.0-7.7); Basophil# 0.06 X10^3/uL; Basophil% 0.5 % (0-1); Hematocrit 47.2 % (40-54); Hemoglobin 15.4 g/dL (13.0-16.5); Lymphocyte # 1.17 X10^3/ul (0.83-4.51); Lymphocyte % 9.1 % (19-41); Mean Corp Hgb Conc 32.6 g/dL (32-36); Mean Corpuscular Hgb 30.5 pg (27.0-32.0); Mean Corpuscular Volume 93.5 fL (80-94); Mean Platelet Vol. 9.3 fl (6.2-12.0); Monocyte# 0.94 X10^3/uL; Monocyte% 7.3 % (0-10); NRBC Flagged by Analyzer 0 % (0-5); Neutrophil # 10.66 X10^3/uL (2.7-7.7); Neutrophil % 82.6 % (47-70); Platelet Count 203 K/mm3 (150-450); RBC Distribution Width SD 47.5 fl (35.1-43.9); Red Blood Count 5.05 M/mm3 (4.6-6.2); White Blood Count 12.9 K/mm3 (4.4-11.0)
--- NOTE | 2023-06-17 22:00 | RAD_ITS ---
STUDY: X-RAY CHEST REASON FOR EXAM: Male, 62 years old. AMS TECHNIQUE: Single AP portable view of the chest. COMPARISON: 03/14/2023 FINDINGS: The lungs are clear and expanded. There is no demonstrated pleural abnormality. Normal size heart. Normal mediastinum and marjan. Normal visualized pulmonary arteries. Normal visualized aortic arch and descending thoracic aorta. Normal visualized thoracic spine. Normal visualized ribs, clavicles, and shoulders. There is no demonstrated abnormality of the visualized soft tissue structures of the upper abdomen. RAD/Chest 1 View (Portable) IMPRESSION: Normal x-ray examination of the chest. Electronically Signed: Jason Plascencia MD at 22:15 EST ,
[2023-06-17 22:15] VITALS: BP 117/63; PULSE 96; RESP 17; O2SAT 95
[2023-06-17 22:17] LABS: Alcohol, Blood (Medical)-Serum < 3.0 mg/dL
[2023-06-17 22:19] LABS: ALB/GLOB Ratio 1.2 RATIO (0.9-2.4); AST(SGOT) 261 U/L (15-37); Alanine Aminotransfer ALT/SGPT 46 U/L (16-61); Albumin, Serum 4.2 g/dL (3.2-5.0); Alkaline Phosphatase 80 U/L (45-117); Anion Gap 13 (5-15); BUN 44 mg/dL (7-18); BUN/Creat Ratio 19.9 RATIO (10-20); Calcium,Total 9.6 mg/dL (8.5-10.1); Chloride 105 mmol/L (98-107); Creatinine, Serum 2.21 mg/dL (0.70-1.30); EST Glomerular Filtration Rate 32 mL/min (>60); Est Glom Filt Rate - Afr Amer 39 mL/min (>60); Estimated Creatinine Clearance 40.29 ml/min; Globulin 3.5 g/dL (2.2-4.2); Glucose 88 mg/dL (74-106); Potassium 3.9 mmol/L (3.5-5.1); Protein, Total 7.7 g/dL (6.4-8.2); Sodium Level 138 mmol/L (136-145)
[2023-06-17 22:35] LABS: Lactic Acid 2.8 mmol/L (0.4-1.9)
--- NOTE | 2023-06-17 22:35 | ED.RN ---
Mother called back, she voices much concern for pt using illegal drugs. She reports he is out of his mind and needs rehab. She requests to talk to social work concerning her safety with him around.
[2023-06-17 22:36] LABS: Bacteria 0 SEEN /hpf (None Seen); Mucous, Urine 0 SEEN /hpf (<or=2+)
[2023-06-17 22:51] LABS: Color, Urine Yellow (Yellow); Glucose, Dipstick Normal (Normal); Ketone-Dipstick 15 mg/dl (Negative); Leukocyte Esterase-Dipstick 25 /ul (Negative); Nitrite-Dipstick Negative (Negative); Occult Blood-Urine 250 /ul (Negative); Protein-Dipstick 100 mg/dl (Negative); Specific Gravity, Urine 1.025 (1.002-1.030); Urine Clarity Sl. Cloudy (Clear); Urine Urobilinogen Normal (Normal)
[2023-06-17 22:52] LABS: Urine Bilirubin Dipstick 1 mg/dL (Negative)
[2023-06-17] MEDS: 0.9% Normal Saline (1000mL) 1,000 ML 999 ML IV (22:54)
[2023-06-17 23:01] LABS: CPK Total, Creatine Kinase 8220 U/L (39-308)
[2023-06-17 23:05] LABS: Amorphous Sediment 1+ URATE; Red Blood Cells-Urine 10-25 SEEN /hpf (0-5); Squamous Epithelial Cells - UA 0-5 SEEN /hpf (0-5); White Blood Cells 0-5 SEEN /hpf (0-5)
[2023-06-17 23:08] LABS: Amphetamine Urine VISTA POSITIVE (<1000 ng/mL); Barbiturate Urine VISTA NEGATIVE (< 200 ng/mL); Benzodiazepine Urine VISTA NEGATIVE (< 200 ng/mL); Cocaine Urine VISTA NEGATIVE (< 300 ng/mL); Ecstacy Urine VISTA POSITIVE (< 500 ng/mL); Methadone Urine VISTA NEGATIVE (< 300 ng/mL); PCP Urine VISTA NEGATIVE (< 25 ng/mL); THC Urine VISTA NEGATIVE (< 50 ng/mL); Vista UDS pH Range 6
--- NOTE | 2023-06-17 23:42 | EDS_ITS ---
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 Patient is brought in by local police/EMS. Per EMS report police were called to scene as patient was found wandering and acting erratically/delusional at health care facility. Nursing staff spoke with family, his sister who suspect patient is abusing drugs, has been waking him up at 3 in the morning and having erratic behavior lately. Patient denies any drug use and states his last drink was yesterday. He tells me that he is hearing voices and he is trying be a better person but people think that he is bad. He tells me that he does not steal. He tells me that he needs to support his . He has no physical complaints just days that he is thirsty. He told EMS that he had been walking through the [place]. PFSH PFS Medical History Alcohol abuse Anxiety and depression Former tobacco use HTN (hypertension) Osteoarthritis Panic attack Home Medications carvedilol 25 mg PO BID htn 01/30/23 [History Last Taken Unknown] paroxetine HCl 20 mg tablet 20 mg PO DAILY 01/30/23 [History Last Taken Unknown] thiamine HCl (vitamin B1) 100 mg tablet (Vitamin B-1) 100 mg PO DAILY 03/13/23 [History Last Taken Unknown] ondansetron 4 mg disintegrating tablet 4 mg PO Q8H PRN PRN Nausea #10 tabs 03/14/23 [Rx Last Taken Unknown] lisinopril 40 mg tablet 40 mg PO DAILY 06/17/23 [History Last Taken Unknown] Allergy/AdvReac Type Severity Reaction Status Date / Time No Known Allergies Allergy Verified 03/14/23 20:39 Family History Mother Anxiety and depression Father Lung disease Surgical History History of thoracic surgery History of tonsillectomy and adenoidectomy History of total right knee replacement Social History household members: other details: Homeless. Smoking Status: Former smoker how long ago did patient quit smoking: Quit x 5 weeks. alcohol intake: current alcohol intake frequency: 3 or more drinks per day details: Reports currently sober but poor historian. substance use type: amphetamines and other details: UDS w/ amphetamines/MDMA. ROS ROS ED Review of Systems ROS Unobtainable: due to mental status EXAM Physical Exam Const Vital Signs: 06/17/23 20:32 06/17/23 22:15 Temperature 94.6 F L Temperature Source Temporal Pulse Rate 106 H 96 Respiratory Rate 22 H 17 Blood Pressure 172/94 H 117/63 Blood Pressure Mean 120 81 Pulse Ox 94 95 Oxygen Delivery Method Room Air Positive well developed and unkempt General Appearance ED: unkempt and well developed HEENT Reports dry mucous membranes Negative for trauma Mouth ED: Yes dry mucous membranes Mouth: dry mucous membranes Neck supple Neck Narrative: No nuchal rigidity Chest Wall inspection of chest normal Resp normal respiratory effort and clear to auscultation bilaterally Cardio regular rhythm Rate: tachycardic GI normal to inspection, nondistended, normoactive bowel sounds and non-tender Extremity normal to inspection General Extremety ED: Negative for edema General Extremity: Negative for edema Neuro oriented x3 Sensorium / Orientation: alert Psych Psych Narrative: Delusional, patient states he is hearing voices that are telling him he is a bad person. Denies any HI or SI. Previously tries to get up and leave the emergency room upon arrival. Appearance: unkempt Skin no rashes or lesions noted and no wounds MDM MDM MDM Narrative Medical decision making narrative: Since evaluated for what seems like acute psychosis. Suspect this could be drug related given his history. Is a history of dehydration/QUE. Patient attempted to leave the ER and do not think he has capacity to leave. [place] slip was filed to our hospital for his own safety. He is given 20 of IM Geodon with significant improvement. Eventually is released from restraints. Is given IV fluids. Is found of a mild leukocytosis of 12.9 with no overt source of infection. He does have an QUE with a creatinine of 2.21 (he has a baseline of a normal creatinine) and rhabdomyolysis with a CK of 8220. Amphetamine and MDMA screen are positive. Urinalysis shows 10-25 red blood cells. He is not complaining of any flank pain. We will continue to monitor below suspicion for infection as he has no bacteria. CT of the brain as well as chest x-ray is obtained which does not show any acute process. Patient is given 1500 cc of fluid in the ER will require admission for rhabdomyolysis, QUE which are all likely drug-induced. Given with IV fluids hypertension and tachycardia improves low suspicion for acute DTs/alcohol withdrawal as a cause of his psychosis. Lab Data Attestation: I reviewed the patient's lab results. Labs: Laboratory Results - last 24 hr 06/17/23 06/17/23 06/17/23 21:15 21:45 22:24 WBC 12.9 H RBC 5.05 Hgb 15.4 Hct 47.2 MCV 93.5 MCH 30.5 MCHC 32.6 RDW Std Deviation 47.5 H RDW Coeff of Ruth 14.0 Plt Count 203 MPV 9.3 Immature Gran % (Auto) 0.500 Neut % (Auto) 82.6 H Lymph % (Auto) 9.1 L [place] % (Auto) 7.3 Eos % (Auto) 0.0 Baso % (Auto) 0.5 Absolute Neuts (auto) 10.7 H Absolute Lymphs (auto) 1.17 Nucleated RBC % 0 Sodium 138 Potassium 3.9 Chloride 105 Carbon Dioxide 20.0 L Anion Gap 13 BUN 44 H Creatinine 2.21 H Estim Creat Clear Calc 40.29 Est GFR (MDRD) Af Amer 39 L Est GFR (MDRD) Non-Af 32 L BUN/Creatinine Ratio 19.9 Glucose 88 Lactic Acid 2.8 H* Calcium 9.6 Total Bilirubin 0.90 AST 261 H ALT 46 Alkaline Phosphatase 80 Total Creatine Kinase 8220 H Total Protein 7.7 Albumin 4.2 Globulin 3.5 Albumin/Globulin Ratio 1.2 Urine Color Yellow Urine Clarity Sl. Cloudy Urine pH 5.0 Ur Specific [place] 1.025 Urine Protein 100 H Urine Glucose (UA) Normal Urine Ketones 15 H Urine Occult Blood 250 H Urine Nitrite Negative Urine Bilirubin 1 H Urine Urobilinogen Normal Ur Leukocyte Esterase 25 H Urine RBC 10-25 SEEN Urine WBC 0-5 SEEN Ur Squamous Epith Cells 0-5 SEEN Amorphous Sediment 1+ URATE Urine Bacteria 0 SEEN Urine Mucus 0 SEEN Urine Opiates Screen NEGATIVE Urine Methadone Screen NEGATIVE Ur Barbiturates Screen NEGATIVE Ur Phencyclidine Scrn NEGATIVE Ur Amphetamines Screen POSITIVE H MDMA (Ecstasy) Screen POSITIVE H U Benzodiazepines Scrn NEGATIVE Urine Cocaine Screen NEGATIVE U Cannabinoids Screen NEGATIVE Ur Drug Screen Comment Ethyl Alcohol < 3.0 Radiography Chest X-Ray - ED: 1 View, Read by ED Physician, Read by Radiologist and No Acute Disease Diagnostic Testing: Clinical Impression(s) from Imaging Studies Brain CT 06/17/23 21:10 IMPRESSION: Normal unenhanced CT scan of the brain. Electronically Signed: Jason Plascencia MD at 22:19 EST , Chest X-Ray 06/17/23 22:00 IMPRESSION: Normal x-ray examination of the chest. Electronically Signed: Jason Plascencia MD at 22:15 EST , Rhythm Strip Rhythm Strip: Sinus Tach Rate: 107 Ectopy: None EKG Initial EKG: Attestation: I personally reviewed and interpreted this EKG as follows: Interpretation: Sinus Tachycardia Comments: Sinus tachycardia rate of 107 bpm Normal axis Normal intervals Normal ST segments Compared to prior EKG no acute changes Management Discussion w/another healthcare provider: Hospitalist Discharge Plan Triage Chief Complaint: Confusion ED Provider: Haritha Sotomayor Dx/Rx/DC Orders Clinical Impression: QUE (acute kidney injury), Acute psychosis, Rhabdomyolysis, Amphetamine abuse Prescriptions: No Action paroxetine HCl 20 mg Tablet 20 mg PO DAILY carvedilol 25 mg PO BID thiamine HCl (vitamin B1) [Vitamin B-1] 100 mg tablet 100 mg PO DAILY lisinopril 40 mg tablet 40 mg PO DAILY ondansetron 4 mg tablet,disintegrating 4 mg PO Q8H PRN PRN (Reason: Nausea) Qty: 10 0RF Primary Care Provider: Care Physician,No Primary Referrals: Care Physician,No Primary [Primary Care Provider] - Disposition Disposition: [facility]
[2023-06-17 23:59] VITALS: BP 136/70; PULSE 91; RESP 15; O2SAT 97
[2023-06-18] VITALS (30 sets, daily range): BP systolic 78–142; BP diastolic 51–102; PULSE 77–126; RESP 15–24; TEMP 36.1–36.9; O2SAT 93–99; BMI 26.9
--- NOTE | 2023-06-18 00:01 | PCM.HP.STD ---
HPI - General General Date of Admission: 06/18/23 Date of Service: 06/18/23 Chief Complaint: Confusion and agitation HPI Narrative ABDULLAHI ANDERS, is a 62 M with a past medical history of essential hypertension, bipolar disorder, history of anxiety with panic attacks, history of tobacco abuse, alcohol abuse, osteoarthritis, methamphetamine abuse; with recent admission for rhabdomyolysis and acute kidney injury in March of this year who presents to [facility] ER with confusion and agitation. Mr. Espinosa is not a reliable historian at this time as he was brought in by local police and EMS for acting erratically was found to be in a delusional state. The nursing staff then contacted the patient's third who suspected the patient was abusing drugs because he has been waking up at 3:00 in the morning and behaving very erratically. Paradoxically the patient denies drug use and says his last drink was on 06/16/2023. He does admit to hearing voices and he told EMS he had been walking [place] the [place] with numerous small cuts scratches on his forearms. He denies associated fevers, chills, nausea, vomiting or other recent acute illness. In the ER his urine drug returned positive for methamphetamines and MDMA with laboratory evidence of rhabdomyolysis with a CK of 8,220 present on admission and acute kidney injury with an elevated creatinine of 2.21 mg/dL present on admission (up from his baseline of 0.68 mg/dL last admission) compounded by clinical evidence of acute psychosis and toxic encephalopathy. He was then pink slipped in the ER and subsequently admitted to the ICU for ongoing care for a stay that is expected to be greater then 48 hours. [facility] Medical History Alcohol abuse Anxiety and depression Former tobacco use HTN (hypertension) Osteoarthritis Panic attack Home Medications carvedilol 25 mg PO BID htn 01/30/23 [History Last Taken Unknown] paroxetine HCl 20 mg tablet 20 mg PO DAILY 01/30/23 [History Last Taken Unknown] thiamine HCl (vitamin B1) 100 mg tablet (Vitamin B-1) 100 mg PO DAILY 03/13/23 [History Last Taken Unknown] ondansetron 4 mg disintegrating tablet 4 mg PO Q8H PRN PRN Nausea #10 tabs 03/14/23 [Rx Last Taken Unknown] lisinopril 40 mg tablet 40 mg PO DAILY 06/17/23 [History Last Taken Unknown] Allergy/AdvReac Type Severity Reaction Status Date / Time No Known Allergies Allergy Verified 03/14/23 20:39 Family History Mother Anxiety and depression Father Lung disease Surgical History History of thoracic surgery History of tonsillectomy and adenoidectomy History of total right knee replacement Social History household members: other details: Homeless. Smoking Status: Former smoker how long ago did patient quit smoking: Quit x 5 weeks. alcohol intake: current alcohol intake frequency: 3 or more drinks per day details: Reports currently sober but poor historian. substance use type: amphetamines and other details: UDS w/ amphetamines/MDMA. ROS ROS Narrative Review of systems cannot be clinic completed because patient is delirious and agitated. Review of Systems ROS Unobtainable: due to encephalopathy Vital Signs Vital Signs Vital Signs: 06/17/23 20:32 06/17/23 22:15 06/17/23 23:59 Temperature 94.6 F L Temperature Source Temporal Pulse Rate 106 H 96 91 Respiratory Rate 22 H 17 15 Blood Pressure 172/94 H 117/63 136/70 H Blood Pressure Mean 120 81 92 Pulse Ox 94 95 97 Oxygen Delivery Method Room Air Weight Weight: 215 lb 6.266 oz Body Mass Index (BMI) 27.6 Physical Exam Const alert and average body habitus Orientation / Consciousness: confused and disoriented HEENT normocephalic, head/scalp atraumatic, hearing grossly normal bilaterally and moist oral mucous membranes HEENT Narrative: Oropharynx dry Eyes PERRL and EOMs intact bilaterally Neck no lymphadenopathy, supple, no JVD and no carotid bruits Resp normal respiratory effort, no retractions, no use of accessory muscles and clear to auscultation bilaterally Cardio regular rate and regular rhythm GI normal to inspection, nondistended, normoactive bowel sounds, soft to palpation, non-tender and non-distended Extremity normal to inspection Skin Skin Narrative: Patient has several small cuts and scratches over both upper extremities left greater than right. There is no signs of any acute infection at this time. Patient has no evidence of rash at this time. Neuro CN's II-XII intact bilaterally, moves all extremities and no focal motor deficits Sensorium / Orientation: awake, alert, oriented to person and oriented to place Speech: speech normal Motor Exam: strength 5/5 throughout Psych Mood & Affect: anxious Results Medical Records Data Attestation: I reviewed the patient's medical records Lab / Micro Data Attestation: I reviewed the patient's lab results. 06/18/23 03:30 06/18/23 03:30 Labs: Laboratory Results - last 24 hr 06/17/23 21:15: Urine Opiates Screen NEGATIVE, Urine Methadone Screen NEGATIVE, Ur Barbiturates Screen NEGATIVE, Ur Phencyclidine Scrn NEGATIVE, Ur Amphetamines Screen POSITIVE H, MDMA (Ecstasy) Screen POSITIVE H, U Benzodiazepines Scrn NEGATIVE, Urine Cocaine Screen NEGATIVE, U Cannabinoids Screen NEGATIVE, Ur Drug Screen Comment 06/17/23 21:45: WBC 12.9 H, RBC 5.05, Hgb 15.4, Hct 47.2, MCV 93.5, MCH 30.5, MCHC 32.6, RDW Std Deviation 47.5 H, RDW Coeff of Ruth 14.0, Plt Count 203, MPV 9.3, Immature Gran % (Auto) 0.500, Neut % (Auto) 82.6 H, Lymph % (Auto) 9.1 L, [place] % (Auto) 7.3, Eos % (Auto) 0.0, Baso % (Auto) 0.5, Absolute Neuts (auto) 10.7 H, Absolute Lymphs (auto) 1.17, Nucleated RBC % 0, Sodium 138, Potassium 3.9, Chloride 105, Carbon Dioxide 20.0 L, Anion Gap 13, BUN 44 H, Creatinine 2.21 H, Estim Creat Clear Calc 40.29, Est GFR (MDRD) Af Amer 39 L, Est GFR (MDRD) Non-Af 32 L, BUN/Creatinine Ratio 19.9, Glucose 88, Lactic Acid 2.8 H*, Calcium 9.6, Total Bilirubin 0.90, AST 261 H, ALT 46, Alkaline Phosphatase 80, Total Creatine Kinase 8220 H, Total Protein 7.7, Albumin 4.2, Globulin 3.5, Albumin/Globulin Ratio 1.2, Ethyl Alcohol < 3.0 06/17/23 22:24: Urine Color Yellow, Urine Clarity Sl. Cloudy, Urine pH 5.0, Ur Specific [place] 1.025, Urine Protein 100 H, Urine Glucose (UA) Normal, Urine Ketones 15 H, Urine Occult Blood 250 H, Urine Nitrite Negative, Urine Bilirubin 1 H, Urine Urobilinogen Normal, Ur Leukocyte Esterase 25 H, Urine RBC 10-25 SEEN, Urine WBC 0-5 SEEN, Ur Squamous Epith Cells 0-5 SEEN, Amorphous Sediment 1+ URATE, Urine Bacteria 0 SEEN, Urine Mucus 0 SEEN Micro: Microbiology 06/17/23 21:29 Nasal Secretion SARS-CoV-2 Antigen (Rapid) - Final Rhythm Strip Rhythm Strip: Sinus Tach Rate: 107 Ectopy: None Radiology Impression Brain CT 06/17/23 21:10 IMPRESSION: Normal unenhanced CT scan of the brain. Electronically Signed: Jason Plascencia MD at 22:19 EST Reading Location ID and State: [id number] / [employer] Tel , Service support , Chest X-Ray 06/17/23 22:00 IMPRESSION: Normal x-ray examination of the chest. Electronically Signed: Jason Plascencia MD at 22:15 EST , Assessment & Plan Assessment/Plan (1) Amphetamine abuse: (2) Rhabdomyolysis: QUALIFIERS: Rhabdomyolysis type: non-traumatic Qualified Code(s): M62.82 - Rhabdomyolysis (3) Acute psychosis: (4) QUE (acute kidney injury): (5) History of alcohol abuse: PLAN: Plan 1. Acute methamphetamine intoxication inducing rhabdomyolysis and QUE with creatinine of 2.21 mg/dL present on admission; recurrent - Admit to ICU. Give vigorous volume resuscitation with normal saline and recheck BMP in the a.m. to ensure improvement. Serialize CK's. Methamphetamine abuse will be strongly discouraged. 2. Toxic encephalopathy with acute psychosis, delirium and agitation due to #1 plus concomitant MDMA intoxication - Continue supportive care and monitor for improvement. Give IM Vistaril as needed for agitation. Give IM Geodon as needed for breakthrough agitation not responsive to Vistaril. Check TSH. MDMA abuse will also be strongly discouraged. 3. Leukocytosis of 12.9 present on admission; likely reactive due to #1 & #2 - There currently no signs of active infection. UA shows 10-25 red blood cells but no signs of UTI. 4. Bipolar disorder; uncontrolled compounding #1 - #3- Restart home medications as previous when patient brittanie up. 5. Essential hypertension - Hold lisinopril and other potentially nephrotoxic agents until kidney function improves. Continue Coreg as previous. We will also give IV hydralazine as needed for systolic blood pressure greater than 160 mmHg. 6. Tobacco abuse - Tobacco cessation will be strongly encouraged with nicotine patch offered to control cravings. 7. DVT prophylaxis - Heparin 5,000 units SQ 3 times daily plus SCD's. Total time: Approximately 75 minutes. Charges/Coding Visit Charges Inpatient E&M: 40571 Init Hosp L3
[2023-06-18] MEDS: 0.9% Normal Saline (1000mL) 1,000 ML 150 ML IV ×4 (01:11→20:02)
[2023-06-18] MEDS: Phenobarbital 32.4 MG Tablet PO ×5 (01:11→20:01)
[2023-06-18] MEDS: hydrOXYzine PAM 25 MG Capsule 50 MG PO ×2 (01:26→20:01)
[2023-06-18] MEDS: Acetaminophen 325 MG Tablet 650 MG PO (01:26)
[2023-06-18] MEDS: traZODone 100 MG Tablet PO ×2 (01:38→20:01)
[2023-06-18 01:52] LABS: Reflex Lactate? Y
[2023-06-18 03:21] LABS: Lactic Acid 1.3 mmol/L (0.4-1.9)
[2023-06-18 03:36] LABS: Absolute Lymphocyte Count 2.04 X10^3/uL (0.83-4.51); Absolute Neutrophil Count 7.4 X10^3/uL (2.0-7.7); Basophil# 0.03 X10^3/uL; Basophil% 0.3 % (0-1); Eosinophil# 0.01 X10^3/uL; Eosinophils% 0.1 % (0-5); Hematocrit 41.2 % (40-54); Hemoglobin 13.1 g/dL (13.0-16.5); Lymphocyte # 2.04 X10^3/ul (0.83-4.51); Lymphocyte % 19.4 % (19-41); Mean Corp Hgb Conc 31.8 g/dL (32-36); Mean Corpuscular Hgb 30.1 pg (27.0-32.0); Mean Corpuscular Volume 94.7 fL (80-94); Mean Platelet Vol. 9.5 fl (6.2-12.0); Monocyte# 1.01 X10^3/uL; Monocyte% 9.6 % (0-10); NRBC Flagged by Analyzer 0 % (0-5); Neutrophil # 7.37 X10^3/uL (2.7-7.7); Neutrophil % 70.3 % (47-70); Platelet Count 177 K/mm3 (150-450); RBC Distribution Width SD 48.1 fl (35.1-43.9); Red Blood Count 4.35 M/mm3 (4.6-6.2); White Blood Count 10.5 K/mm3 (4.4-11.0)
[2023-06-18 04:09] LABS: AST(SGOT) 174 U/L (15-37); Alanine Aminotransfer ALT/SGPT 36 U/L (16-61); Alkaline Phosphatase 57 U/L (45-117); Anion Gap 10 (5-15); BUN 45 mg/dL (7-18); BUN/Creat Ratio 24.5 RATIO (10-20); Calcium,Total 7.9 mg/dL (8.5-10.1); Chloride 108 mmol/L (98-107); Creatinine, Serum 1.84 mg/dL (0.70-1.30); EST Glomerular Filtration Rate 40 mL/min (>60); Est Glom Filt Rate - Afr Amer 48 mL/min (>60); Globulin 2.9 g/dL (2.2-4.2); Glucose 123 mg/dL (74-106); Phosphorus 6.1 mg/dL (2.5-4.9); Potassium 3.7 mmol/L (3.5-5.1); Protein, Total 5.9 g/dL (6.4-8.2); Sodium Level 142 mmol/L (136-145); Thyroid Stim Hormone (TSH) 0.36 uIU/mL (0.358-3.74)
--- NOTE | 2023-06-18 05:07 | EKG12_ITS ---
Test Reason : TACHYCARDIA Blood Pressure : / mmHG Vent. Rate : 121 BPM Atrial Rate : 000 BPM P-R Int : 000 ms QRS Dur : 100 ms QT Int : 372 ms P-R-T Axes : 000 014 052 degrees QTc Int : 528 ms Accelerated Junctional rhythm with retrograde conduction Possible Inferior infarct , age undetermined Abnormal ECG When compared with ECG of 17-JUN-2023 21:29, MANUAL COMPARISON REQUIRED, DATA IS UNCONFIRMED Confirmed by ANNMARIE WATERMAN, BRIAN ([id number]), index editor MAXIMINO PALENCIA ([id number]) on 06/29/2023 12:56:33 PM Referred By: MARK Confirmed By:BRIAN ANGUIANO MD
[2023-06-18] MEDS: Heparin Injection (Vial) 5,000 UNIT/ML VIAL 5000 UNIT SC ×3 (05:10→20:01)
[2023-06-18] MEDS: 0.9% Saline Lock 10 ML Syringe IV ×2 (05:10→20:02)
--- NOTE | 2023-06-18 06:27 | EKG12_ITS ---
Test Reason : Blood Pressure : / mmHG Vent. Rate : 122 BPM Atrial Rate : 000 BPM P-R Int : 000 ms QRS Dur : 100 ms QT Int : 372 ms P-R-T Axes : 000 000 045 degrees QTc Int : 530 ms Accelerated Junctional rhythm Possible Inferior infarct , age undetermined Abnormal ECG When compared with ECG of 18-JUN-2023 05:07, MANUAL COMPARISON REQUIRED, DATA IS UNCONFIRMED Confirmed by ANNMARIE WATERMAN, BRIAN ([id number]), supervising film or videotape editor MAXIMINO PALENCIA ([id number]) on 06/29/2023 1:07:47 PM Referred By: Confirmed By:BRIAN ANGUIANO MD
--- NOTE | 2023-06-18 06:33 | EKG12_ITS ---
Test Reason : Blood Pressure : / mmHG Vent. Rate : 123 BPM Atrial Rate : 000 BPM P-R Int : 000 ms QRS Dur : 102 ms QT Int : 372 ms P-R-T Axes : 000 005 043 degrees QTc Int : 532 ms Accelerated Junctional rhythm with retrograde conduction with occasional Premature ventricular comple xes Inferior infarct , age undetermined Abnormal ECG When compared with ECG of 18-JUN-2023 05:07, MANUAL COMPARISON REQUIRED, DATA IS UNCONFIRMED Confirmed by ANNMARIE WATERMAN, BRIAN ([id number]), clinical editor MAXIMINO PALENCIA ([id number]) on 06/29/2023 12:56:24 PM Referred By: Confirmed By:BRIAN ANGUIANO MD
[2023-06-18 07:41] LABS: Troponin-I HS 29 pg/mL (3.0-78.0)
[2023-06-18] MEDS: Folic Acid 1 MG Tablet PO (08:08)
[2023-06-18] MEDS: Thiamine Hydrochloride 100 MG Tablet PO (08:08)
[2023-06-18] MEDS: Influenza Virus Vac Quad 23-24 60 MCG/0.5 ML SYRINGE IM (08:11)
[2023-06-18 08:17] LABS: CPK Total, Creatine Kinase 4334 U/L (39-308)
--- NOTE | 2023-06-18 09:03 | PCM.PN.HOSP ---
Reason for Visit Reason for Visit: Diagnoses Alcohol abuse, in remission (06/18/23) Other stimulant abuse, uncomplicated (06/18/23) Brief psychotic disorder (06/18/23) Rhabdomyolysis (06/18/23) Acute kidney failure, unspecified (06/18/23) Objective Data Objective Data Vital Signs: Vital Signs Temp Pulse Resp BP Pulse Ox O2 Del Method 97.4 F L 120 H 20 H 78/61 L 97 Room Air 06/18/23 04:00 06/18/23 07:00 06/18/23 07:00 06/18/23 07:00 06/18/23 07:00 06/18/23 07:00 Oxygen Delivery Method Room Air Weight: 210 lb 1.608 oz Body Mass Index (BMI) 26.9 Intake & Output: Intake and Output for Last 24 Hours 06/16/23 06/17/23 06/18/23 23:59 23:59 23:59 Intake Total 500 / 500 2500 / 2500 Output Total 475 / 475 Balance 500 / 500 2024 / 2024 Lab / Micro Data 06/18/23 03:30 06/18/23 03:30 Labs: Laboratory Results - last 24 hr 06/17/23 21:15: Urine Opiates Screen NEGATIVE, Urine Methadone Screen NEGATIVE, Ur Barbiturates Screen NEGATIVE, Ur Phencyclidine Scrn NEGATIVE, Ur Amphetamines Screen POSITIVE H, MDMA (Ecstasy) Screen POSITIVE H, U Benzodiazepines Scrn NEGATIVE, Urine Cocaine Screen NEGATIVE, U Cannabinoids Screen NEGATIVE, Ur Drug Screen Comment 06/17/23 21:45: WBC 12.9 H, RBC 5.05, Hgb 15.4, Hct 47.2, MCV 93.5, MCH 30.5, MCHC 32.6, RDW Std Deviation 47.5 H, RDW Coeff of Ruth 14.0, Plt Count 203, MPV 9.3, Immature Gran % (Auto) 0.500, Neut % (Auto) 82.6 H, Lymph % (Auto) 9.1 L, [place] % (Auto) 7.3, Eos % (Auto) 0.0, Baso % (Auto) 0.5, Absolute Neuts (auto) 10.7 H, Absolute Lymphs (auto) 1.17, Nucleated RBC % 0, Sodium 138, Potassium 3.9, Chloride 105, Carbon Dioxide 20.0 L, Anion Gap 13, BUN 44 H, Creatinine 2.21 H, Estim Creat Clear Calc 40.29, Est GFR (MDRD) Af Amer 39 L, Est GFR (MDRD) Non-Af 32 L, BUN/Creatinine Ratio 19.9, Glucose 88, Lactic Acid 2.8 H*, Calcium 9.6, Total Bilirubin 0.90, AST 261 H, ALT 46, Alkaline Phosphatase 80, Total Creatine Kinase 8220 H, Total Protein 7.7, Albumin 4.2, Globulin 3.5, Albumin/Globulin Ratio 1.2, Ethyl Alcohol < 3.0 06/17/23 22:24: Urine Color Yellow, Urine Clarity Sl. Cloudy, Urine pH 5.0, Ur Specific [place] 1.025, Urine Protein 100 H, Urine Glucose (UA) Normal, Urine Ketones 15 H, Urine Occult Blood 250 H, Urine Nitrite Negative, Urine Bilirubin 1 H, Urine Urobilinogen Normal, Ur Leukocyte Esterase 25 H, Urine RBC 10-25 SEEN, Urine WBC 0-5 SEEN, Ur Squamous Epith Cells 0-5 SEEN, Amorphous Sediment 1+ URATE, Urine Bacteria 0 SEEN, Urine Mucus 0 SEEN 06/18/23 02:35: Lactic Acid 1.3 06/18/23 03:30: WBC 10.5, RBC 4.35 L, Hgb 13.1, Hct 41.2, MCV 94.7 H, MCH 30.1, MCHC 31.8 L, RDW Std Deviation 48.1 H, RDW Coeff of Ruth 14.0, Plt Count 177, MPV 9.5, Immature Gran % (Auto) 0.300, Neut % (Auto) 70.3 H, Lymph % (Auto) 19.4, [place] % (Auto) 9.6, Eos % (Auto) 0.1, Baso % (Auto) 0.3, Absolute Neuts (auto) 7.4, Absolute Lymphs (auto) 2.04, Nucleated RBC % 0, Sodium 142, Potassium 3.7, Chloride 108 H, Carbon Dioxide 24.0, Anion Gap 10, BUN 45 H, Creatinine 1.84 H, Estim Creat Clear Calc 48.40, Est GFR (MDRD) Af Amer 48 L, Est GFR (MDRD) Non-Af 40 L, BUN/Creatinine Ratio 24.5 H, Glucose 123 H, Calcium 7.9 L, Phosphorus 6.1 H, Total Bilirubin 0.50, AST 174 H, ALT 36, Alkaline Phosphatase 57, Troponin I High Sens 29, Total Protein 5.9 L, Albumin 3.0 L, Globulin 2.9, Albumin/Globulin Ratio 1.0, TSH 0.36 06/18/23 06:49: Total Creatine Kinase 4334 H Micro: Microbiology 06/17/23 21:29 Nasal Secretion SARS-CoV-2 Antigen (Rapid) - Final Radiography Diagnostic Testing: Radiology Impression Brain CT 06/17/23 21:10 IMPRESSION: Normal unenhanced CT scan of the brain. Electronically Signed: Jason Plascencia MD at 22:19 EST Reading Location ID and State: [id number] / [place] [facility] , Service support , Chest X-Ray 06/17/23 22:00 IMPRESSION: Normal x-ray examination of the chest. Electronically Signed: Jason Plascencia MD at 22:15 EST Reading Location ID and State: [id number] / [place] [facility] , Service support , Rhythm Strip Rhythm Strip: Sinus Tach Rate: 107 Ectopy: None Physical Exam Narrative Seen and examined. As per nursing staff patient is having hallucinations and delusional thoughts. General: Somnolent, lethargic. Hard to ascertain his orientation. HEENT: Atraumatic, PERRLA, EOMI, Normocephalic Oral: No Gingival or Mucosal Lesions/ Ulcerations Neck: Supple, No JVD, Negative Carotid Bruits Lungs: Air entry diminished in bilateral lung bases. No crepitation/rhonchi Cardiovascular: Regular rate, Regular Rhythm, Normal S1, Normal S2, No murmurs Abdomen: Bowel Sounds Present, Soft, Non Tender, Non-Distended : No renal angle tenderness. No suprapubic tenderness. Extremities: No edema, Capillary Refill Less than 3 Seconds Skin: everal small cuts and scratches over both upper extremities left greater than right. no signs of any acute infection at this time. No acute rash mid Musculoskeletal: No Tenderness to Palpation of Joints or Extremities ROM full and intact. Neurological: Cranial nerves II-XII grossly intact, DTR 2+/4. No acute focal neurological deficit. Psych/Mental Status: Flat affect, hallucinations, delusions. Assessment & Plan Assessment/Plan (1) Amphetamine abuse: (2) Rhabdomyolysis: QUALIFIERS: Rhabdomyolysis type: non-traumatic Qualified Code(s): M62.82 - Rhabdomyolysis (3) Acute psychosis: (4) QUE (acute kidney injury): (5) History of alcohol abuse: PLAN: Plan 63-year-old male with history of chronic alcohol use disorder, bipolar disorder came to ED for abnormal behavior brought by local police/EMS. Patient was found wandering, inappropriate behavior acting erratically/delusional thought trying to get better but some of people think he is a bad person), auditory hallucination. His sister suspected patient is using some drugs; he wakes up at 3 AM and acting weird. As per patient his last drink was yesterday. 1. Acute methamphetamine intoxication inducing rhabdomyolysis and QUE with creatinine of 2.21 mg/dL present on admission: Patient is admitted in ICU. Admitting CK 8220 improving to 4334. Vigorous IV fluid normal saline resuscitation. Monitor CK. Patient will need acute crisis management/psychological evaluation after he wake up and maintain his mentation. 2. Toxic encephalopathy with acute psychosis, delusional thoughts and hallucination, delirium, and agitation most likely due to methamphetamine intoxication plus concomitant MDMA intoxication - Continue supportive care and monitor for improvement. Give IM Vistaril as needed for agitation. Give IM Geodon as needed for breakthrough agitation not responsive to Vistaril. U tox positive of amphetamine, MDMA. Serum Ethyl alcohol less than 3. TSH 0.36 low normal but I think it is probably secondary to multiple polysubstance use. Free T4 ordered for tomorrow AM. 3. Leukocytosis of 12.9 present on admission; likely reactive - There currently no signs of active infection. UA shows 10-25 red blood cells but no signs of UTI. 4. Bipolar disorder; uncontrolled Restart home medications as previous when patient brittanie up. 5. Essential hypertension - Hold lisinopril and other potentially nephrotoxic agents until kidney function improves. Continue Coreg as previous. We will also give IV hydralazine as needed for systolic blood pressure greater than 160 mmHg. 6. Tobacco abuse - Tobacco cessation will be strongly encouraged with nicotine patch offered to control cravings. 7. DVT prophylaxis - Heparin 5,000 units SQ 3 times daily plus SCD's. Charges/Coding Visit Charges Inpatient E&M: 34839 Subs Hosp L3
[2023-06-18] MEDS: Gabapentin 300 MG Capsule PO ×2 (09:52→20:01)
[2023-06-19] VITALS (19 sets, daily range): BP systolic 92–146; BP diastolic 45–85; PULSE 67–118; RESP 16–28; TEMP 36.7–37.2; O2SAT 91–99; BMI 28.2
[2023-06-19] MEDS: Gabapentin 300 MG Capsule PO ×3 (03:19→20:14)
[2023-06-19] MEDS: Phenobarbital 32.4 MG Tablet PO ×5 (03:19→20:13)
[2023-06-19] MEDS: hydrOXYzine PAM 25 MG Capsule 50 MG PO ×3 (03:20→20:13)
[2023-06-19] MEDS: Acetaminophen 325 MG Tablet 650 MG PO ×2 (03:20→20:14)
[2023-06-19] MEDS: 0.9% Normal Saline (1000mL) 1,000 ML 150 ML IV ×3 (03:21→16:44)
[2023-06-19 05:44] LABS: Absolute Lymphocyte Count 1.61 X10^3/uL (0.83-4.51); Absolute Neutrophil Count 4.8 X10^3/uL (2.0-7.7); Basophil# 0.03 X10^3/uL; Basophil% 0.4 % (0-1); Eosinophil# 0.16 X10^3/uL; Eosinophils% 2.2 % (0-5); Hematocrit 39.2 % (40-54); Hemoglobin 12.4 g/dL (13.0-16.5); Lymphocyte # 1.61 X10^3/ul (0.83-4.51); Lymphocyte % 22.3 % (19-41); Mean Corp Hgb Conc 31.6 g/dL (32-36); Mean Corpuscular Hgb 30.2 pg (27.0-32.0); Mean Corpuscular Volume 95.4 fL (80-94); Mean Platelet Vol. 10.2 fl (6.2-12.0); Monocyte% 8.3 % (0-10); NRBC Flagged by Analyzer 0 % (0-5); Neutrophil # 4.81 X10^3/uL (2.7-7.7); Neutrophil % 66.7 % (47-70); Platelet Count 154 K/mm3 (150-450); RBC Distribution Width SD 48.3 fl (35.1-43.9); Red Blood Count 4.11 M/mm3 (4.6-6.2); White Blood Count 7.2 K/mm3 (4.4-11.0)
[2023-06-19 07:02] LABS: ALB/GLOB Ratio 0.9 RATIO (0.9-2.4); AST(SGOT) 84 U/L (15-37); Alanine Aminotransfer ALT/SGPT 28 U/L (16-61); Albumin, Serum 2.5 g/dL (3.2-5.0); Alkaline Phosphatase 63 U/L (45-117); Anion Gap 5 (5-15); BUN 33 mg/dL (7-18); BUN/Creat Ratio 46.5 RATIO (10-20); CPK Total, Creatine Kinase 1587 U/L (39-308); Calcium,Total 7.8 mg/dL (8.5-10.1); Chloride 110 mmol/L (98-107); Creatinine, Serum 0.71 mg/dL (0.70-1.30); EST Glomerular Filtration Rate 119 mL/min (>60); Est Glom Filt Rate - Afr Amer 144 mL/min (>60); Estimated Creatinine Clearance 125.42 ml/min; Globulin 2.8 g/dL (2.2-4.2); Glucose 110 mg/dL (74-106); Potassium 3.3 mmol/L (3.5-5.1); Protein, Total 5.3 g/dL (6.4-8.2); Sodium Level 142 mmol/L (136-145)
[2023-06-19] MEDS: Heparin Injection (Vial) 5,000 UNIT/ML VIAL 5000 UNIT SC ×3 (07:09→20:16)
--- NOTE | 2023-06-19 07:33 | PN.HOSP_ITS ---
Reason for Visit Reason for Visit: Diagnoses Alcohol abuse, in remission (06/18/23) Other stimulant abuse, uncomplicated (06/18/23) Brief psychotic disorder (06/18/23) Rhabdomyolysis (06/18/23) Acute kidney failure, unspecified (06/18/23) Objective Data Objective Data Vital Signs: Vital Signs Temp Pulse Resp BP Pulse Ox O2 Del Method 98.9 F 90 18 92/64 95 Room Air 06/19/23 04:00 06/19/23 07:00 06/19/23 07:00 06/19/23 07:00 06/19/23 07:32 06/19/23 07:32 Oxygen Delivery Method Room Air Weight: 220 lb 0.341 oz Body Mass Index (BMI) 28.2 Intake & Output: Intake and Output for Last 24 Hours 06/17/23 06/18/23 06/19/23 23:59 23:59 23:59 Intake Total 500 / 500 4280 / 4480 1320 / 1320 Output Total 1825 / 1825 900 / 900 Balance 500 / 500 2455 / 2655 420 / 420 Lab / Micro Data 06/19/23 03:20 06/19/23 03:20 Labs: Laboratory Results - last 24 hr 06/18/23 03:30: Troponin I High Sens 29 06/18/23 06:49: Total Creatine Kinase 4334 H 06/19/23 03:20: WBC 7.2, RBC 4.11 L, Hgb 12.4 L, Hct 39.2 L, MCV 95.4 H, MCH 30.2, MCHC 31.6 L, RDW Std Deviation 48.3 H, RDW Coeff of Ruth 14.0, Plt Count 154, MPV 10.2, Immature Gran % (Auto) 0.100, Neut % (Auto) 66.7, Lymph % (Auto) 22.3, [place] % (Auto) 8.3, Eos % (Auto) 2.2, Baso % (Auto) 0.4, Absolute Neuts (auto) 4.8, Absolute Lymphs (auto) 1.61, Nucleated RBC % 0, Sodium 142, Potassium 3.3 L, Chloride 110 H, Carbon Dioxide 27.0, Anion Gap 5, BUN 33 H, Creatinine 0.71, Estim Creat Clear Calc 125.42, Est GFR (MDRD) Af Amer 144, Est GFR (MDRD) Non-Af 119, BUN/Creatinine Ratio 46.5 H, Glucose 110 H, Calcium 7.8 L , Total Bilirubin 0.30, AST 84 H, ALT 28, Alkaline Phosphatase 63, Total Creatine Kinase 1587 H, Total Protein 5.3 L, Albumin 2.5 L, Globulin 2.8, Albumin/Globulin Ratio 0.9, Free T4 0.90 Micro: Microbiology 06/17/23 21:29 Nasal Secretion SARS-CoV-2 Antigen (Rapid) - Final Rhythm Strip Rhythm Strip: Sinus Tach Rate: 107 Ectopy: None Physical Exam Narrative Seen and examined. Patient is more quite and following simple command. But is still not very forthcoming, awake with open eyes or give any meaningful history. As per nursing staff patient is having hallucinations and delusional thoughts. General: Lethargic, sleepy. Hard to ascertain his orientation. HEENT: Atraumatic, PERRLA, EOMI, Normocephalic Oral: No Gingival or Mucosal Lesions/ Ulcerations Neck: Supple, No JVD, Negative Carotid Bruits Lungs: Air entry diminished in bilateral lung bases. No crepitation/rhonchi Cardiovascular: Regular rate, Regular Rhythm, Normal S1, Normal S2, No murmurs Abdomen: Bowel Sounds Present, Soft, Non Tender, Non-Distended : No renal angle tenderness. No suprapubic tenderness. Extremities: No edema, Capillary Refill Less than 3 Seconds Skin: everal small cuts and scratches over both upper extremities left greater than right. no signs of any acute infection at this time. No acute rash mid Musculoskeletal: No Tenderness to Palpation of Joints or Extremities ROM full and intact. Neurological: Cranial nerves II-XII grossly intact, DTR 2+/4. No acute focal neurological deficit. Psych/Mental Status: Flat affect, hallucinations, delusions. Assessment & Plan Assessment/Plan (1) Amphetamine abuse: (2) Rhabdomyolysis: QUALIFIERS: Rhabdomyolysis type: non-traumatic Qualified Code(s): M62.82 - Rhabdomyolysis (3) Acute psychosis: (4) QUE (acute kidney injury): (5) History of alcohol abuse: PLAN: Plan 63-year-old male with history of chronic alcohol use disorder, bipolar disorder came to ED for abnormal behavior brought by local police/EMS. Patient was found wandering, inappropriate behavior acting erratically/delusional thought trying to get better but some of people think he is a bad person), auditory hallucination. His sister suspected patient is using some drugs; he wakes up at 3 AM and acting weird. As per patient his last drink was yesterday. 1. Acute methamphetamine intoxication inducing rhabdomyolysis and QUE with creatinine of 2.21 mg/dL present on admission: Patient is admitted in ICU. Admitting CK 8220 improving to 4334. Vigorous IV fluid normal saline resuscitation. Monitor CK. Patient will need acute crisis management/psychological evaluation after he wake up and maintain his mentation. 11: Patient still not very awake or eyes open talking irrelevant in order to have crisis management consult for evaluation. Perhaps tomorrow will be better today for crisis management evaluation. 2. Toxic encephalopathy with acute psychosis, delusional thoughts and hallucin ation, delirium, and agitation most likely due to methamphetamine intoxication plus concomitant MDMA intoxication - Continue supportive care and monitor for improvement. Give IM Vistaril as needed for agitation. Give IM Geodon as needed for breakthrough agitation not responsive to Vistaril. U tox positive of amphetamine, MDMA. Serum Ethyl alcohol less than 3. TSH 0.36 low normal but I think it is probably secondary to multiple polysubstance use. 11: Free T4, 0.9 In normal range. I think, patient is in euthyroid status. May be repeat thyroid function test after 3 months. 3. Leukocytosis of 12.9 present on admission; likely reactive - There currently no signs of active infection. UA shows 10-25 red blood cells but no signs of UTI. 06/19: Leukocytosis resolved. Normal WBC count. 4. Bipolar disorder; uncontrolled Restart home medications as previous when patient brittanie up. 5. Essential hypertension - Hold lisinopril and other potentially nephrotoxic agents until kidney function improves. Continue Coreg as previous. We will also give IV hydralazine as needed for systolic blood pressure greater than 160 mmHg. 6. Tobacco abuse - Tobacco cessation will be strongly encouraged with nicotine patch offered to control cravings. 7. DVT prophylaxis - Heparin 5,000 units SQ 3 times daily plus SCD's. Charges/Coding Visit Charges Inpatient E&M: 61684 Subs Hosp L2
[2023-06-19] MEDS: Folic Acid 1 MG Tablet PO (09:32)
[2023-06-19] MEDS: Thiamine Hydrochloride 100 MG Tablet PO (09:33)
[2023-06-19] MEDS: 0.9% Saline Lock 10 ML Syringe IV (20:14)
[2023-06-19] MEDS: traZODone 100 MG Tablet PO (20:14)
[2023-06-20] VITALS (10 sets, daily range): BP systolic 111–140; BP diastolic 60–92; PULSE 62–78; RESP 13–18; TEMP 36.3–37.2; O2SAT 92–96
[2023-06-20] MEDS: 0.9% Normal Saline (1000mL) 1,000 ML 150 ML IV ×4 (00:42→19:27)
[2023-06-20] MEDS: Phenobarbital 32.4 MG Tablet PO ×4 (05:42→20:04)
[2023-06-20] MEDS: Heparin Injection (Vial) 5,000 UNIT/ML VIAL 5000 UNIT SC ×3 (05:42→20:04)
--- NOTE | 2023-06-20 07:37 | PCM.PN.HOSP ---
Reason for Visit Reason for Visit: Diagnoses Alcohol abuse, in remission (06/18/23) Other stimulant abuse, uncomplicated (06/18/23) Brief psychotic disorder (06/18/23) Rhabdomyolysis (06/18/23) Acute kidney failure, unspecified (06/18/23) Subjective Subjective Feels well. Said he recently moved here and was cutting through the [place] to go to [employer] when he fell and hit his head. He denies any illicit substance use recently. Objective Data Objective Data Vital Signs: Vital Signs Temp Pulse Resp BP Pulse Ox O2 Del Method 36.8 C 78 16 132/74 H 96 Room Air 06/20/23 06:00 06/20/23 06:00 06/20/23 06:00 06/20/23 06:00 06/20/23 06:00 06/20/23 06:00 Oxygen Delivery Method Room Air Weight: 99.8 kg Body Mass Index (BMI) 28.2 Intake & Output: Intake and Output for Last 24 Hours 06/18/23 06/19/23 06/20/23 23:59 23:59 23:59 Intake Total 4280 / 4480 3225 / 3475 1999 Output Total 1825 / 1825 900 / 1800 1800 / 1800 Balance 2455 / 2655 2325 / 1675 200 / 200 Lab / Micro Data 06/19/23 03:20 06/19/23 03:20 Micro: Microbiology 06/17/23 21:29 Nasal Secretion SARS-CoV-2 Antigen (Rapid) - Final Rhythm Strip Rhythm Strip: Sinus Tach Rate: 107 Ectopy: None Physical Exam Const alert and no apparent distress Constitutional Narrative: groggy. answers questions appropriately. Resp normal respiratory effort, no retractions, no use of accessory muscles and clear to auscultation bilaterally Cardio regular rate, regular rhythm, S1 normal heart sound and S2 normal heart sound GI normal to inspection, nondistended, normoactive bowel sounds, soft to palpation, non-tender, non-distended and hepatosplenomegaly Extremity normal to inspection and no clubbing, cyanosis or edema Assessment & Plan Assessment/Plan (1) Encephalopathy acute: PLAN: Unclear etiology, though suspect metabolic. Pt denies illicit substance abuse (recently), particularly denies methamphetamine abuse and MDMA. This may have been post-concussion syndrome complicated by QUE and rhabdomyolysis. Monitor for now. (2) Rhabdomyolysis: QUALIFIERS: Rhabdomyolysis type: non-traumatic Qualified Code(s): M62.82 - Rhabdomyolysis PLAN: Improving. Unclear if drug-induced v traumatic. Continue IVF. (3) QUE (acute kidney injury): PLAN: POA Improving and now resolved with IVF PLAN: Plan Leukocytosis of 12.9 present on admission, now resolved. likely reactive - There currently no signs of active infection. Bipolar disorder; uncontrolled Restart home medications as previous when patient more alert Essential hypertension -Continue carvedilol and lisinopril. Tobacco abuse - Tobacco cessation will be strongly encouraged with nicotine patch offered to control cravings. DVT prophylaxis - Heparin 5,000 units SQ 3 times daily plus SCD's. Charges/Coding Visit Charges Inpatient E&M: 60672 Subs Hosp L2
[2023-06-20] MEDS: Carvedilol 25 MG Tablet PO ×2 (08:02→16:06)
[2023-06-20] MEDS: Thiamine Hydrochloride 100 MG Tablet PO (08:02)
[2023-06-20] MEDS: Folic Acid 1 MG Tablet PO (08:02)
[2023-06-20] MEDS: Lisinopril 40 MG Tablet PO (08:38)
--- NOTE | 2023-06-20 10:37 | NURSING ---
report given to GIACOMO Fuentes on MS. Patient transferred to [facility] via wheelchair by [facility] with home meds and patient belongings.
[2023-06-20] MEDS: Gabapentin 300 MG Capsule PO (17:47)
[2023-06-21 02:00] VITALS: BP 125/74; PULSE 70; RESP 16; TEMP 36.9; O2SAT 93
[2023-06-21] MEDS: 0.9% Normal Saline (1000mL) 1,000 ML 150 ML IV (02:06)
[2023-06-21] MEDS: Phenobarbital 32.4 MG Tablet PO ×3 (02:06→14:34)
[2023-06-21] MEDS: Heparin Injection (Vial) 5,000 UNIT/ML VIAL 5000 UNIT SC ×2 (04:31→14:34)
[2023-06-21 06:35] LABS: Anion Gap 2 (5-15); BUN 12 mg/dL (7-18); BUN/Creat Ratio 21.3 RATIO (10-20); CPK Total, Creatine Kinase 353 U/L (39-308); Calcium,Total 7.8 mg/dL (8.5-10.1); Chloride 109 mmol/L (98-107); Creatinine, Serum 0.56 mg/dL (0.70-1.30); EST Glomerular Filtration Rate 156 mL/min (>60); Est Glom Filt Rate - Afr Amer 188 mL/min (>60); Estimated Creatinine Clearance 159.02 ml/min; Glucose 100 mg/dL (74-106); Potassium 3.8 mmol/L (3.5-5.1); Sodium Level 141 mmol/L (136-145)
--- NOTE | 2023-06-21 07:33 | PCM.PN.HOSP ---
Reason for Visit Reason for Visit: Diagnoses Alcohol abuse, in remission (06/18/23) Other stimulant abuse, uncomplicated (06/18/23) Brief psychotic disorder (06/18/23) Encephalopathy, unspecified (06/18/23) Rhabdomyolysis (06/18/23) Acute kidney failure, unspecified (06/18/23) Subjective Subjective Feeling better. Objective Data Objective Data Vital Signs: Vital Signs Temp Pulse Resp BP Pulse Ox O2 Del Method 36.9 C 70 16 125/74 H 93 Room Air 06/21/23 02:00 06/21/23 02:00 06/21/23 02:00 06/21/23 02:00 06/21/23 02:00 06/21/23 02:00 Oxygen Delivery Method Room Air Weight: 99.8 kg Body Mass Index (BMI) 28.2 Intake & Output: Intake and Output for Last 24 Hours 06/19/23 06/20/23 06/21/23 23:59 23:59 23:59 Intake Total 3225 / 3475 4550 / 4550 997.5 / 997.5 Output Total 900 / 1800 1800 / 2500 1100 / 1100 Balance 2325 / 1675 2750 / 2050 -102.5 / -102.5 Lab / Micro Data 06/19/23 03:20 06/21/23 05:25 Labs: Laboratory Results - last 24 hr 06/21/23 05:25: Sodium 141, Potassium 3.8, Chloride 109 H, Carbon Dioxide 30.0, Anion Gap 2 L, BUN 12, Creatinine 0.56 L, Estim Creat Clear Calc 159.02, Est GFR (MDRD) Af Amer 188, Est GFR (MDRD) Non-Af 156, BUN/Creatinine Ratio 21.3 H, Glucose 100, Calcium 7.8 L, Total Creatine Kinase 353 H Micro: Microbiology 06/17/23 21:29 Nasal Secretion SARS-CoV-2 Antigen (Rapid) - Final Rhythm Strip Rhythm Strip: Sinus Tach Rate: 107 Ectopy: None Physical Exam Const alert and no apparent distress Resp normal respiratory effort, no retractions, no use of accessory muscles and clear to auscultation bilaterally Cardio regular rate, regular rhythm, S1 normal heart sound and S2 normal heart sound GI normal to inspection, nondistended, normoactive bowel sounds, soft to palpation, non-tender and non-distended Assessment & Plan Assessment/Plan (1) Encephalopathy acute: PLAN: Unclear etiology, though suspect metabolic. Pt denies illicit substance abuse (recently), particularly denies methamphetamine abuse and MDMA. This may have been post-concussion syndrome complicated by QUE and rhabdomyolysis. Though its reported that pt does indeed use drugs. Crisis for evaluation. (2) Rhabdomyolysis: QUALIFIERS: Rhabdomyolysis type: non-traumatic Qualified Code(s): M62.82 - Rhabdomyolysis PLAN: Likely traumatic from being down from unknown period of time. Improving with IVF. Unclear if drug-induced v traumatic. HLIV (3) QUE (acute kidney injury): PLAN: POA Improving and now resolved with IVF PLAN: Plan Leukocytosis of 12.9 present on admission, now resolved. likely reactive - There currently no signs of active infection. Bipolar disorder; resume paroxetine. Essential hypertension -Continue carvedilol and lisinopril. Tobacco abuse - Tobacco cessation will be strongly encouraged with nicotine patch offered to control cravings. DVT prophylaxis - Heparin 5,000 units SQ 3 times daily plus SCD's. Charges/Coding Visit Charges Inpatient E&M: 65649 Subs Hosp L2
[2023-06-21 07:37] VITALS: BP 158/90; PULSE 72; RESP 18; TEMP 37; O2SAT 94
[2023-06-21] MEDS: Acetaminophen 325 MG Tablet 650 MG PO (07:48)
[2023-06-21] MEDS: 0.9% Saline Lock 10 ML Syringe IV (07:48)
[2023-06-21] MEDS: Carvedilol 25 MG Tablet PO ×2 (07:52→16:27)
[2023-06-21] MEDS: hydrOXYzine PAM 25 MG Capsule 50 MG PO (07:52)
[2023-06-21] MEDS: Thiamine Hydrochloride 100 MG Tablet PO (07:55)
[2023-06-21] MEDS: Folic Acid 1 MG Tablet PO (07:56)
[2023-06-21] MEDS: Lisinopril 40 MG Tablet PO (07:58)
[2023-06-21] MEDS: Paroxetine 20 MG Tablet PO (08:02)
[2023-06-21 08:47] VITALS: BP 165/91; PULSE 71; RESP 20; TEMP 36.3; O2SAT 92
--- NOTE | 2023-06-21 10:12 | CASEMGMT ---
Social Work Referral received for mental health evaluation. Pt brought to ED by Prema ALEMAN stating delusional, erratic behavior and hearing voices. [place] Slip has been issued. Phone call to Crisis and referral made. Elina at Crisis states someone will be in to assess pt. Clinicals faxed to Crisis. TRISTAN [place]
[2023-06-21 14:24] VITALS: BP 158/98; PULSE 65; RESP 18; TEMP 36.6; O2SAT 93
--- NOTE | 2023-06-21 15:25 | PCM.DC.SUM ---
Providers Date of Admission: 06/18/23 Primary Care Physician: No Primary Care Phys Reason For Visit: ACUTE METHAMPHETAMINE INTOXICATION W/ACUTE KIDNEY Diagnosis Discharge Diagnosis (1) Encephalopathy acute: Status: Acute Code(s): G93.40 - Encephalopathy, unspecified Plan: Unclear etiology, though suspect metabolic. Pt denies illicit substance abuse (recently), particularly denies methamphetamine abuse and MDMA. This may have been post-concussion syndrome complicated by QUE and rhabdomyolysis. Though its reported that pt does indeed use drugs. Crisis for evaluation. (2) Rhabdomyolysis: Status: Acute Code(s): M62.82 - Rhabdomyolysis Qualifiers: Rhabdomyolysis type: non-traumatic Qualified Code(s): M62.82 - Rhabdomyolysis Plan: Likely traumatic from being down from unknown period of time. Improving with IVF. Unclear if drug-induced v traumatic. HLIV (3) QUE (acute kidney injury): Status: Acute Code(s): N17.9 - Acute kidney failure, unspecified Plan: POA Improving and now resolved with IVF Plan Leukocytosis of 12.9 present on admission, now resolved. likely reactive - There currently no signs of active infection. Bipolar disorder; resume paroxetine. Essential hypertension -Continue carvedilol and lisinopril. Tobacco abuse - Tobacco cessation will be strongly encouraged with nicotine patch offered to control cravings. DVT prophylaxis - Heparin 5,000 units SQ 3 times daily plus SCD's. Medications at Discharge Home Medications carvedilol 25 mg PO BID htn 01/30/23 paroxetine HCl 20 mg tablet 20 mg PO DAILY 01/30/23 thiamine HCl (vitamin B1) 100 mg tablet (Vitamin B-1) 100 mg PO DAILY 03/13/23 ondansetron 4 mg disintegrating tablet 4 mg PO Q8H PRN PRN Nausea #10 tabs 03/14/23 lisinopril 40 mg tablet 40 mg PO DAILY 06/17/23 Hospital Course Operations None Procedures None Summary of Care Provided Minutes Spent on Discharge: 32 Hospital Course: Patient presents with delirium. Patient was reportedly hearing voices when he was walking through the [place]. Patient had a head CT that showed no acute process. Patient was noted to be in rhabdomyolysis with CPKs of 8220. Patient started on IV fluids and admitted to the floor. Patient's rhabdomyolysis improved with IV fluids. 1 requiring the patient, about drug use, because his drug screens because positive for amphetamines as well as MDMA. He denies any recent drug use and especially no methamphetamines nor ecstasy. Patient states that he was walking through the [place] to go to the grocery store and fell and hit his head. Is unclear if patient had a postconcussion syndrome and was acting confused afterwards. Patient was evaluated by crisis as he was pink slipped upon arrival and deemed not a candidate for any inpatient psychiatric facility. Patient has been getting up and walking with therapy. Is possible this patient may have had a postconcussion syndrome with rhabdomyolysis from being down for unknown period of time. But overall he is better. He will be discharged home in stable condition. Weight / BMI Weight Weight: 99.8 kg Body Mass Index (BMI) 28.2 ABG / Lab / Microbiology Data 06/19/23 03:20 06/21/23 05:25 Laboratory: Laboratory Results - last 24 hr 06/21/23 05:25: Sodium 141, Potassium 3.8, Chloride 109 H, Carbon Dioxide 30.0, Anion Gap 2 L, BUN 12, Creatinine 0.56 L, Estim Creat Clear Calc 159.02, Est GFR (MDRD) Af Amer 188, Est GFR (MDRD) Non-Af 156, BUN/Creatinine Ratio 21.3 H, Glucose 100, Calcium 7.8 L, Total Creatine Kinase 353 H Microbiology: Microbiology 06/17/23 21:29 Nasal Secretion SARS-CoV-2 Antigen (Rapid) - Final D/C Instructions Discharge Diet: No restrictions Meaningful Use Info Meaningful Use Diagnoses (Choose all that apply): None applicable Discharge Plan Admission Admit Date/Time: 06/18/23 00:24 Primary Reason for Your Visit: Delirium. Rhabdomyolysis Attending Provider: Aniket Lakhani Primary Care Provider: Care Physician,No Primary Consulting Providers: Laron Ibanez; Aston Moore Discharge Orders/Prescriptions Prescriptions: Continued paroxetine HCl 20 mg Tablet 20 mg PO DAILY carvedilol 25 mg PO BID thiamine HCl (vitamin B1) [Vitamin B-1] 100 mg tablet 100 mg PO DAILY lisinopril 40 mg tablet 40 mg PO DAILY ondansetron 4 mg tablet,disintegrating 4 mg PO Q8H PRN PRN (Reason: Nausea) Qty: 10 0RF Referrals / Follow Up: Care Physician,No Primary [Primary Care Provider] - Disposition Disposition (needs filled in before D/C Order can be placed): Home, Self Care Charges/Coding Visit Charges Inpatient E&M: 47401 Disch Hosp >30min
--- NOTE | 2023-06-21 16:15 | CASEMGMT ---
Social Work Counselor from [facility] here to assess pt and states Pt does not qualify for inpatient psychiatric placement. Pt was agreeable to outpatient mental health counseling and Counselor will be in contact with pt to [facility]. Safety plan was created. Copy paced on pt chart. SW?to room to meet with patient for initial transition planning/care coordination?assessment.?SW?introduced self and role at [facility].? Pt voices understanding and consents to?assessment.?Care providers, pharmacy, and demographics verified. PCP: Pt states he has currently made an appointment to establish care with a PCP at the [facility]. Pt is uncertain of which physician the appointment is with. Specialists: none [facility] [place] [facility] [place]:?yes LNOK: Shahla Louis, mother Sandra Schaefer, sister Living Arrangements: Pt states he lives in an apartment by himself. Two flights of stairs to his apartment with no elevator. Pt is independent with all care needs. Transportation:?Pt uses a taxi or his mother transports DME: ? none HHC/SNF: no prior Drug/Alcohol use: Pt denies need for inpatient or outpatient counseling for drug/alcohol use. SW educated pt to [facility] program and pt does not feel he requires services at this time but is accepting of written information. Pt states he does go to NA meetings and that things are private. PLAN: SW spoke with pt regarding SNF placement for short term rehab. Pt is adamant that he will not go to a SNF and will return to his apartment alone. SW inquired about steps to enter and pt denies a problem and feels he can return home. SW requested to call pt's mother and pt denied. Pt states he will contact his mother and she can assist with transportation home. RNSANTA cody. TRISTAN Lagos
[2023-06-21 16:19] VITALS: BP 154/90; PULSE 72; RESP 16; TEMP 36.7; O2SAT 95
--- NOTE | 2023-06-21 16:28 | CASEMGMT ---
GIACOMO CM into room to follow up with pt after speaking with mother. Pt nurse present in room, pt states his mother is picking him up at 4:45. Discussed therapy with patient and recommendation of a FWW. Pt declines FWW, he states that his home does not allow for it space casey. Pt asks about a cane and he is aware that this can be obtained at a drug store such as [employer]. Pt states that his mother can get this for him. Pt states he has a PCP appt in September. Pt denies any need for outpt therapy. He states that he will use his steps into his home as therapy. Pt states he feels safe to maneuver theses steps. He states he lives alone but does not need any assistance. He does ask nurse about his medications that he brought with him. She is checking on these. Pt denies further needs at this time and is ready for dc.
== END 2023-06-21 16:45 | disposition home or self-care (01) | DRG 351 ==
LOC: ED 06-18 00:03 → ICU 06-18 00:32 → MS3 06-20 10:47
PROVIDERS: Internal Medicine; Admitting Provider Internal Medicine; Emergency Provider Emergency Medicine
DX: M62.82 Rhabdomyolysis (principal); G93.41 Metabolic encephalopathy; F15.121 Other stimulant abuse with intoxication delirium; F07.81 Postconcussional syndrome; N17.9 Acute kidney failure, unspecified; F31.9 Bipolar disorder, unspecified; F23 Brief psychotic disorder; F10.10 Alcohol abuse, uncomplicated; I10 Essential (primary) hypertension; Y90.0 Blood alcohol level of less than 20 mg/100 ml; Z59.00 Homelessness unspecified; Z79.899 Other long term (current) drug therapy; Z87.891 Personal history of nicotine dependence; Z23 Encounter for immunization
CPT/HCPCS: 36415; 70450; 71045; 80048; 80053; 80307; 81001; 82077; 82550; 83605; 84100; 84439; 84443; 84484; 85025; 87811; 93005; 97162; 97166; 99285; 99406; J7030; J7040; J7050; 90686; A4216; J3486

== ENCOUNTER 2024-11-28 08:35 | Emergency (ER) | payer MEDICAID, SELFPAY ==
[2024-11-28 08:38] VITALS: BP 139/89; PULSE 112; RESP 23; TEMP 36.2; O2SAT 97; BMI 28.5
--- NOTE | 2024-11-28 08:46 | CT_ITS ---
PROCEDURE: BRAIN/HEAD WITHOUT CONTRAST 11/28/2024 REASON FOR EXAM: CONFUSION Alcohol abuse. TECHNIQUE: Head CT without intravenous contrast. Coronal and Sagittal reconstruction series were provided. One or more dose reduction techniques were used (e.g., Automated exposure control, adjustment of the mA and/or kV according to patient size, use of iterative reconstruction technique. RADIATION DOSE SUMMARY: CTDlvol: 44.99 mGy DLP: 863.6 mGycm COMPARISON: No prior FINDINGS: Brain: Within normal limits for age CSF Spaces: Mild generalized cerebral atrophy Sinuses/Mastoids: Clear at visualized levels Bones: Unremarkable CT/Brain/Head without Contrast IMPRESSION: Mild cerebral atrophy. [facility]
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
[2024-11-28 09:05] LABS: Absolute Neutrophil Count 10.7 X10^3/uL (2.0-7.7); Basophil# 0.03 X10^3/uL; Basophil% 0.2 % (0-1); Eosinophil# 0.01 X10^3/uL; Eosinophils% 0.1 % (0-5); Hematocrit 44.5 % (40-54); Hemoglobin 14.6 g/dL (13.0-16.5); Lymphocyte % 8.2 % (19-41); Mean Corp Hgb Conc 32.8 g/dL (32-36); Mean Corpuscular Hgb 30.1 pg (27.0-32.0); Mean Corpuscular Volume 91.8 fL (80-94); Mean Platelet Vol. 9.7 fl (6.2-12.0); Monocyte# 0.44 X10^3/uL; Monocyte% 3.6 % (0-10); NRBC Flagged by Analyzer 0 % (0-5); Neutrophil # 10.67 X10^3/uL (2.7-7.7); Neutrophil % 87.4 % (47-70); Platelet Count 185 K/mm3 (150-450); RBC Distribution Width SD 43.8 fl (35.1-43.9); Red Blood Count 4.85 M/mm3 (4.6-6.2); White Blood Count 12.2 K/mm3 (4.4-11.0)
[2024-11-28] MEDS: 0.9% Normal Saline (1000mL) 1,000 ML 150 ML IV (09:26)
[2024-11-28] MEDS: Lorazepam 2 MG/ML WCH Syringe 1 MG IV (09:26)
--- NOTE | 2024-11-28 09:35 | RAD_ITS ---
PROCEDURE: CHEST 1 VIEW (PORTABLE) 11/28/2024 REASON FOR EXAM: HYPOXIA TECHNIQUE: Frontal view of the chest. COMPARISON: None. FINDINGS: Hardware: None. Heart: Heart size is mildly enlarged with pulmonary vascular congestion. Lungs: Low lung volumes, [id number]. Small left pleural effusion. No focal consolidation or pneumothorax. Bones: Degenerative changes are identified within the thoracic spine. Severe right glenohumeral joint arthrosis. RAD/Chest 1 View (Portable) IMPRESSION: Mild cardiomegaly and small left pleural effusion. Reading Location: [id number]
[2024-11-28 09:37] VITALS: BP 134/76; PULSE 89; RESP 14; O2SAT 98
[2024-11-28 09:44] LABS: Alcohol, Blood (Medical)-Serum < 10.1 mg/dL (<=10.0)
[2024-11-28 09:46] LABS: ALB/GLOB Ratio 1.4 RATIO (0.9-2.4); AST(SGOT) 40 U/L (<=37); Alanine Aminotransfer ALT/SGPT 8 U/L (<=46); Albumin, Serum 4.7 g/dL (3.4-4.8); Alkaline Phosphatase 89 U/L (40-129); Anion Gap 18 (5-15); BUN 38 mg/dL (4-19); BUN/Creat Ratio 26.5 RATIO (10-20); Calcium,Total 9.7 mg/dL (7.6-11.0); Carbon Dioxide 22.5 mmol/L (21.0-32.0); Chloride 104 mmol/L (98-108); Creatinine, Serum 1.45 mg/dL (0.70-1.20); EST Glomerular Filtration Rate 54 (>60); Estimated Creatinine Clearance 65.31 ml/min (50-250); Globulin 3.3 g/dL (2.2-4.2); Glucose 114 mg/dL (70-99); Potassium 3.9 mmol/L (3.3-5.1); Protein, Total 8.1 g/dL (5.9-8.4); Sodium Level 144 mmol/L (133-145); Total Bilirubin 0.91 mg/dL (0.00-1.30)
[2024-11-28 10:07] LABS: Troponin T High Sensitivity 13 ng/L (<=22)
[2024-11-28 10:51] LABS: Color, Urine Yellow (Yellow); Glucose, Dipstick Normal (Normal); Ketone-Dipstick 50 mg/dl (Negative); Leukocyte Esterase-Dipstick 25 /ul (Negative); Nitrite-Dipstick Negative (Negative); Occult Blood-Urine 250 /ul (Negative); Specific Gravity, Urine 1.025 (1.002-1.030); Urine Bilirubin Dipstick Negative (Negative); Urine Clarity Sl. Cloudy (Clear); Urine Urobilinogen Normal (Normal)
[2024-11-28 10:59] LABS: Amphetamine Urine PRESUMPTIVE POSITIVE (<1000 ng/mL); Barbiturate Urine NEGATIVE (< 200 ng/mL); Benzodiazepine Urine NEGATIVE (< 200 ng/mL); Buprenorphine Urine NEGATIVE (< 200 ng/mL); Cocaine Urine NEGATIVE (< 300 ng/mL); Fentanyl, Urine NEGATIVE; Methadone Urine NEGATIVE (< 300 ng/mL); Opiates Urine NEGATIVE (< 300 ng/mL); Oxycodone, Urine NEGATIVE (< 100 ng/mL); PCP Urine NEGATIVE (< 25 ng/mL); THC Urine PRESUMPTIVE POSITIVE (< 50 ng/mL)
[2024-11-28 11:00] VITALS: BP 134/78; PULSE 78; RESP 16; O2SAT 98
[2024-11-28 11:16] LABS: Bacteria 1+ /hpf (None Seen); Mucous, Urine 1+ /hpf (<or=2+); Red Blood Cells-Urine 50-100 SEEN /hpf (0-5); Squamous Epithelial Cells - UA 0-5 SEEN /hpf (0-5); White Blood Cells 0-5 SEEN /hpf (0-5)
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
--- NOTE | 2024-11-28 13:38 | CM.ED ---
Social Work SW spoke with patients sister and mother. Patients sister states that her and her have been helping patient out for years, that they have paid for his apartments and given him additional help as they were able. Sister states that they are no longer able to help him financially. Patients mother stated that she is unable to care for patient as she herself still has to work at 85 years of age to support herself. Both mother and sister state that patient has been unable to secure housing or take care of himself since his significant other of 25 years had to go to an assisted living ten years ago. Alysia Kern, JUMPBASTING FACING BASTER, ELECTRICIAN RESEARCH
--- NOTE | 2024-11-28 13:42 | CM.ED ---
Social Work SW contacted [facility], they do not currently have any beds on their dual diagnosis unit and will not have a bed available until tomorrow, [facility] was contacted, they do have available beds. Referral sent. Plan: Inpatient psychiatric hospitalization pending acceptance. Alysia Kern, PACKAGE LINE OPERATOR, FORESTRY ENGINEER
--- NOTE | 2024-11-28 14:04 | CM.ED ---
Social Work [facility] called to accept patient. Accepting phsysician is Dr. Can, patient will be going to [facility]. N2N [phone]. [place] slip faxed. Alysia Kern, DEPOSITION OPERATOR, PARKING CASHIER
[2024-11-28] MEDS: Lorazepam 2 MG/ML WCH Syringe IM (15:00)
[2024-11-28 16:09] VITALS: BP 142/82; PULSE 86; RESP 18; TEMP 36.5; O2SAT 100
== END 2024-11-28 16:17 ==
PROVIDERS: Emergency Provider Emergency Medicine; Visit Provider Emergency Medicine
DX: R41.0 Disorientation, unspecified (principal); F29 Unspecified psychosis not due to a substance or known physiological condition; F15.10 Other stimulant abuse, uncomplicated; I10 Essential (primary) hypertension; Z59.00 Homelessness unspecified; F41.8 Other specified anxiety disorders; Z79.899 Other long term (current) drug therapy; Z96.651 Presence of right artificial knee joint; F17.210 Nicotine dependence, cigarettes, uncomplicated
CPT/HCPCS: 70450; 71045; 80053; 80307; 81001; 82077; 84156; 84484; 85025; 87040; 93005; 96361; 96372; 96374; 99285; A4216